=== PATIENT | male | born 1960 | race Caucasian/White ===

== ENCOUNTER 2017-02-04 07:53 | Outpatient (CLI) | payer MEDICARE ==
[~2017-02-04] VITALS: Ht 172.7 cm; Wt 122.7 kg
--- NOTE | ~2017-02-04 | HEMODYNAMI ---
PATIENT:FELIPE ADDISON MEDICAL RECORD: [id number] : 56 LOCATION:DSTIVEN ADMISSION DATE: 02/04/17 Generatedon:02/04/201711:00 Patient name: FELIPE ADDISON Patient #: [id number] SSN: : 1960 Date of study: 02/04/2017 Page: Of Hemodynamic Procedure Report Patient Data Patient Demographics Procedure consent was obtained First Name: FELIPE Gender: Male Last Name: CYN : 1960 [facility] Initial: PATRICK Age: 56 year(s) Patient #: [id number] Race: Unknown Additional ID: [id number] Contact details Address: [facility] [address] State: [place] City: [place] Zip code: [address] Past Medical History Allergies Allergen Reaction Date Comments Reported Other allergy 02/04/2017 Spiriva Admission Admission Data Admission Date: 02/04/2017 Admission Time: 7:53 Admit Source: Other Lab Results Lab Result Date: 02/04/2017 Lab Result Time: 8:20 Biochemistry Name Units Result Min Max BUN mg/dl 18 --(---*)-- 7 18 Creatinine mg/dl 1.1 --(--*-)-- 0.6 1.3 CBC Name Units Result Min Max Hematocrit % 42.9 --(*---)-- 42 54 Hemoglobin g/dl 13.6 --(*---)-- 13.5 17.5 Procedure Procedure Types Cath Procedure Diagnostic Procedure LHC LH w/Coronaries FFR/IVUS Intra-Coronary IVUS Initial PCI Procedure Coronary Stent Initial Miscellaneous Procedures Moderate Sedation up to 30 minutes Procedure Description Procedure Date Procedure Date: 02/04/2017 Procedure Start Time: 10:43 Procedure End Time: 10:59 Procedure Staff Name Function Augustine Murillo MD Performing Physician Santy Bagley RT Scrub Alex Nayak RN Nurse Yolis Ramires RT Monitor Savage Arreola RN Drivers License Examiner Procedure Data Cath Procedure Fluoroscopy Diagnostic fluoroscopy Total fluoroscopy Time: 4.3 time: 4.3 min min Diagnostic fluoroscopy Total fluoroscopy dose: dose: 1134 mGy 1134 mGy Contrast Material Contrast Material Type Amount (ml) Isovue 300 102 Entry Location Entry Primary Successful Side Size Upsize Upsize Entry Closure Rhodes ccessful Closure Location (Fr) 1 (Fr) 2 (Fr) Remarks Device Remarks Radial Right 6 Fr Mechanical artery Short Compression Estimated blood loss: 10 ml Diagnostic catheters Device Type Used For End Catheter Placement Merit 5Fr Ultimate 1 LV Angiography Catheter (NO COST SUPPLY) Merit 5Fr Ultimate 1 Left Coronary Catheter (NO COST SUPPLY) Angiography Merit 5Fr Ultimate 1 Right Coronary Catheter (NO COST SUPPLY) Angiography Procedure Complications No complications Procedure Medications Medication Administration Route Dosage Oxygen NC 2 l/min Lidocaine 2% added to field 20 Heparin Flush Bag added to field 2 bags (1000units/500ml NS) 0.9% NaCl I.V. 100 ml/hr Versed I.V. 2 mg Fentanyl I.V. 100 mcg Radial Cocktail added to field 1 syringe (Verapomil 2mg/Nitro 400mcg/Heparin 1500units) Versed I.V. 2 mg Fentanyl I.V. 100 mcg Versed I.V. 1 mg Fentanyl I.V. 50 mcg Heparin Bolus I.V. 5000 units Versed I.V. 1 mg Fentanyl I.V. 50 mcg Hemodynamics Rest Heart Rate: 73 (bpm) Snapshots Pre Cath Intra NCS Post Cath Vital Signs Time Heart Resp SPO2 etCO2 [id number] NIBP (mmHg) Rhythm Pain Sedation Rate (ipm) (%) (mmHg) (mmHg) Status Level (bpm) 10:25:53 79 11 96 0 0 162/84(121) NSR 0 (11) 10(A) , No pain 10:30:32 79 24 96 0 0 174/85(140) NSR 0 (11) 10(A) , No pain 10:35:14 80 24 96 0 0 175/90(138) NSR 0 (11) 10(A) , No pain 10:39:55 73 27 94 0 0 160/81(134) NSR 0 (11) 10(A) , No pain 10:44:33 74 14 94 0 0 156/78(124) NSR 0 (11) 10(A) , No pain 10:49:04 75 16 94 0 0 146/66(98) NSR 0 (11) 10(A) , No pain 10:53:38 77 17 97 0 0 143/71(115) NSR 0 (11) 10(A) , No pain 10:58:09 86 17 97 0 0 152/80(118) NSR 0 (11) 10(A) , No pain Medications Time Medication Route Dose Verified Delivered Reason Note s Effectiveness by by 10:28:31 Oxygen NC 2 l/min Augustine Buffie used for Chidi Nayak RN procedure 10:28:43 Lidocaine 2% added 20ml Augustine Augustine for local to vial Chidi Murillo MD anesthetic field 10:28:50 Heparin Flush added 2 bags Augustinemitzi Bradshaw used for Bag to Chidi Murillo MD procedure (1000units/500ml field NS) 10:29:03 0.9% NaCl I.V. 100 Augustine Buffie Per physician ml/hr Chidi Nayak RN 10:36:31 Versed I.V. 2 mg Augustine Buffie for sedation Chidi Nayak RN 10:36:40 Fentanyl I.V. 100 mcg Augustine Buffie for sedation Chidi Nayak RN 10:38:56 Radial Cocktail added 1 Augustinemitzi Mosleyie (Verapomil to syringe Chidi Nayak RN 2mg/Nitro field 400mcg/Heparin 1500units) 10:41:04 Versed I.V. 2 mg Augustine Buffie for sedation Chidi Nayak RN 10:41:08 Fentanyl I.V. 100 mcg Augustine Buffie for sedation Chidi Nayak RN 10:45:43 Versed I.V. 1 mg Augustine Buffie for sedation Chidi Nayak RN 10:45:47 Fentanyl I.V. 50 mcg Augustine Buffie for sedation Chidi Nayak RN 10:50:10 Heparin Bolus I.V. 5000 Augustine Buffie for veri fied units Chidi Nayak RN anticoagulation with dr murillo 10:53:26 Versed I.V. 1 mg Augustine Buffie for sedation Chidi Nayak RN 10:53:30 Fentanyl I.V. 50 mcg Augustine Buffie for sedation Chidi Nayak RN Procedure Log Time Note 9:49:20 Informed consent obtained and on chart 9:49:24 Admit Source: Other 9:49:57 Savage Arreola RN sent for patient. Start room use. 9:49:58 Time tracking: Regular hours 9:50:02 Plan of Care:Hemodynamics will remain stable., Cardiac rhythm will remain stable., Comfort level will be maintained., Respiratory function will remain adequate., Patient/ family verbilizes understanding of procedure., Procedure tolerated without complication., Recovers from procedure without complications.. 9:50:14 H&P Date Dictated: 01/19/2017 Within 30 days and on chart., H&P Addendum completed by physician on day of procedure. (MUST COMPLETE FOR ALL OUTPATIENTS). 9:51:51 Lab Result : BUN 18 mg/dl 9::51 Lab Result : Creatinine 1.1 mg/dl 9::51 Lab Result : Hematocrit 42.9 % 9::51 Lab Result : Hemoglobin 13.6 g/dl 10:18:53 Patient received from Pre/Post Procedure Room to CCL 1 Alert and oriented. Tansferred to table in Supine position. 10:18:55 Warm blankets applied, and dariela hugger turned on for patient comfort. 10:18:55 Correct patient and procedure confirmed by team. 10:18:56 ECG and BP/O2 sat monitors applied to patient. 10:19:03 Pre-procedure instructions explained to patient. 10:19:04 Pre-op teaching completed and patient verbalized understanding. 10:19:05 Family in waiting room. 10:19:07 Patient NPO since Midnight. 10:24:10 Vital chart was started 10:28:31 Oxygen 2 l/min NC was administered by Alex Nayak RN; used for procedure; 10:28:43 Lidocaine 2% 20ml vial added to field was administered by Augustine Murillo MD; for local anesthetic; 10:28:50 Heparin Flush Bag (1000units/500ml NS) 2 bags added to field was administered by Augustine Murillo MD; used for procedure; 10:29:03 0.9% NaCl 100 ml/hr I.V. was administered by Alex Nayak RN; Per physician; 10:29:40 Full Disclosure recording started 10:29:44 Rhythm: sinus rhythm 10:29:59 Patient allergic to Other allergySpiriva 10:30:01 Is the patient allergic to Iodine/contrast media? No. 10:30:05 Is patient on blood thinner?Yes 10:30:07 ACC The patient was administered the following blood thiners within the last 24 hours: ACCPlavix 10:30:09 Patient diabetic? Yes. 10:30:13 If diabetic: On Metformin? No 10:30:19 Previous problem with sedation/anesthesia? No ? 10:30:20 Snore? Yes 10:30:22 Sleep apnea? Yes 10:30:24 Deviated septum? No 10:30:25 Opens mouth fully? Yes 10:30:25 Sticks out tongue? Yes 10:30:28 Airway obstruction? Yes COPD 10:30:32 Dentures? No ? 10:30:37 Pre procedure: right dorsailis pedis pulse 2+ Normal; easily identifiable; not easily obliterated 10:30:39 Modified Jose Angel's test Ulnar < 7 seconds 10:30:41 Patient pain scale 0/10 ?. 10:30:45 IV patent on arrival in left hand with 0.9% NaCl at O. 10:30:48 Lab results completed and on chart. 10:30:52 Right Radial & Right Groin area was prepped with chlora-prep and draped in sterile fashion 10:30:52 Alarms reviewed by R. N. 10:30:53 Sharps counted by scrub and verified by R.N. 10:30:56 Use device set Radial Dx 10:30:57 Acist Syringe opened to sterile field. 10:30:58 Medline Cath Pack opened to sterile field. 10:30:58 Bag Decanter opened to sterile field. 10:30:59 Terumo 6Fr Slender Glidesheath opened to sterile field. 10:30:59 St Scout 260cm J .035 wire opened to sterile field. 10:30:59 Acist Hand Control opened to sterile field. 10:30:59 Acist Manifold opened to sterile field. 10:31:00 Tegaderm 4 x 4 opened to sterile field. 10:31:00 MBrace Wrist Support opened to sterile field. 10:36:15 Final Timeout: patient, procedure, and site verified with staff and physician. All members of the team are in agreement. 10:36:18 Right Radial site verified by team. 10:36:21 Physical assessment completed. ASA score P 2 - A patient with mild systemic disease as per Augustine Mruillo MD. 10:36:25 Sedation plan: IV Moderate Sedation Versed, Fentanyl 10:36:31 Versed 2 mg I.V. was administered by Alex Nayak RN; for sedation; 10:36:40 Fentanyl 100 mcg I.V. was administered by Alex Nayak RN; for sedation; 10:38:56 Radial Cocktail (Verapomil 2mg/Nitro 400mcg/Heparin 1500units) 1 syringe added to field was administered by Alex Nayak RN; ; 10:40:50 Zero performed for pressure channel P1 10:41:04 Versed 2 mg I.V. was administered by Alex Nayak RN; for sedation; 10:41:08 Fentanyl 100 mcg I.V. was administered by Alex Nayak RN; for sedation; 10:41:15 Baseline sample Acquired. 10:43:01 Procedure started. 10:43:06 Local anesthetic to right radial artery with Lidocaine 2% by Augustine Murillo MD.INITIAL ACCESS ONLY 10:43:42 A 6 Fr Short sheath was inserted into the Right Radial artery 10:44:44 A Q.ME 5Fr Ultimate 1 Catheter (NO COST SUPPLY) was advanced over the wire and used for LV Angiography. 10:45:43 Versed 1 mg I.V. was administered by Alex Nayak RN; for sedation; 10:45:46 LV gram done using MEJIA 10:45:47 Fentanyl 50 mcg I.V. was administered by Alex Nayak RN; for sedation; 10:45:49 EF : 55 % 10:45:53 Injector settings: Ml/sec: 5, Volume: 15, 10:46:07 A Q.ME 5Fr Ultimate 1 Catheter (NO COST SUPPLY) was advanced over the wire and used for Left Coronary Angiography. 10:47:13 Rajput Whisper J 300cm 0.014 guide wire opened to sterile field. 10:47:14 Q.ME BasixCompak Inflation Kit opened to sterile field. 10:48:43 A Q.ME 5Fr Ultimate 1 Catheter (NO COST SUPPLY) was advanced over the wire and used for Right Coronary Angiography. 10:49:11 Catheter removed. 10:49:20 ILink Globaltronic Launcher 6Fr AR 2.0 guide catheter opened to sterile field. 10:50:10 Heparin Bolus 5000 units I.V. was administered by Alex Nayak RN; for anticoagulation; verified with dr murillo 10:50:47 6 Fr AR 2.0 guide catheter was inserted over the wire 10:51:20 Whisper wire advanced. 10:51:51 IVUS catheter advanced over wire. 10:51:55 IVUS pass to RCA lesion performed. 10:52:53 IVUS catheter removed over wire. 10:53:26 Versed 1 mg I.V. was administered by Alex Nayak RN; for sedation; 10:53:30 Fentanyl 50 mcg I.V. was administered by Alex Nayak RN; for sedation; 10:54:20 Inflation Number: 1 A Hayden OTW 3.0 x 26 stent was prepped and advanced across the Dist RCA. The stent was deployed at 13 ANALIA for 0:08 (min:sec). 10:54:54 Stent catheter was removed intact over wire. 10:54:54 Wire removed. 10:54:55 Guide catheter removed. 10:55:04 Sheath removed intact; hemostasis achieved with Mechanical Compression to the Right Radial artery. 10:55:08 Procedure ended.(Physican Out) 10:56:04 Fluoroscopy time 04.30 minutes. 10:56:07 Fluoroscopy dose: 1134 mGy 10:56:07 Flurop Dose total: 1134 10:56:11 Contrast amount:Isovue 300 102ml. 10:56:12 Sharps counted by scrub and verified by R.N. 10:56:15 TR band inflated with 12cc of air. 10:56:20 Insertion/operative site no bleeding no hematoma. 10:56:27 Post right radial artery:stable, clean and dry 10:56:29 Post Procedure Pulses reassessed and unchanged 10:56:37 Post-procedure physical assessment completed. ASA score P 2 - A patient with mild systemic disease as per Augustine Murillo MD. 10:56:40 Post procedure rhythm: unchanged. 10:56:43 Estimated blood loss: 10 ml 10:56:44 Post procedure instruction explained to patient.Patient verbalizes understanding. 10:56:45 Patient needs reinforcement of post procedure teaching. 10:57:05 Procedure type changed to Cath procedure, Diagnostic procedure, LHC, LHC w/Coronaries, FFR/IVUS, Intra-Coronary IVUS Initial, PCI procedure, Coronary Stent Initial, Miscellaneous Procedures, Moderate Sedation up to 30 minutes 10:57:43 Procedure Complication : No complications 10:57:46 See physician's report for complete and final results. 10:58:25 [place] Eag[place]e IVUS Catheter opened to sterile field. 10:58:45 Terumo TR Band Large opened to sterile field. 10:59:06 Procedure and supply charges have been captured, reviewed, submitted and are correct. 10:59:14 Report given to Pre/Post Procedure Room. 10:59:18 Patient transfered to Pre/Post Procedure Room with Stretcher. 10:59:24 Procedure ended. 10:59:24 Full Disclosure recording stopped 10:59:59 End room use (Document Last) 11:00:01 Vital chart was stopped Intervention Summary Intervention Notes Time ActionType Lesion and Equipment Action# Pressure Duration Attributes Used 10:54:20 Place stent Dist RCA Hayden OTW 1 13 00:08 3.0 x 26 stent Device Usage Item Name Manufacture Quantity Catalog Hospital Part Current Minima l Lot# / Number Charge Number Stock Stock Serial# Code Acist Acist 1 60965 [id number] 474244 389335 20 Syringe Medical Systems Inc Medline Cardinal 1 [id number] 778311 46249 540273 5 Cath Pack Health Bag Microtek 1 2002S [id number] 56260 104281 5 DecAll Together Now Medical Inc. Terumo 6Fr Terumo 1 [id number] 695112 670351 065717 [address] St Scout 1 624506 500907 928507 023327 30 260cm J .035 wire Acist Hand Acist 1 24684 368844 740363 425602 5 Control Medical Systems Inc Acist Acist 1 86302 363156 758034 367060 5 Manifold Medical Systems Inc Tegaderm 4 3M 1 1626W 868253 850033 533228 5 x 4 MBrace Advanced 1 140-0250-00 397530 33577 473099 5 Wrist Vascular Support Dynamics Merit 5Fr Merit 1 [id number] 214038 012370 5 Ultimate 1 Medical Catheter (NO COST SUPPLY) Rajput Rajput 1 [id number] 137916 054257 041908 5 Whisper J Vascular 300cm 0.014 guide wire Merit Merit 1 [id number] 493574 160422 946358 15 BasixCompak Medical Inflation Kit Medtronic Medtronic 1 [id number] 107874 60317 215092 1 Launcher 6Fr AR 2.0 guide catheter [place] OTW Medtronic 1 [id number] 031332 0685790 908591 5 [id number] 3.0 x 26 stent [place] 1 [id number] 816352 066904 561564 8 [place] IVUS Catheter Terumo TR Terumo 1 [id number] 212621 407326 660752 40 Band Large Signature Audit [place] Time Signature Unsigned Intra-Procedure 02/04/2017 Yolis 11:00:13 AM Counts RT(R) Signatures Monitor : Yolis Signature : Counts RT Date : Time : [address] [address]
--- NOTE | ~2017-02-04 | OP ---
PATIENT NAME: FELIPE ADDISON MEDICAL RECORD: [id number] :56 LOCATION:D.CAT ADMISSION DATE: SURGEON: ROMY GONZALEZ MD DATE OF OPERATION: 02/04/2017 PROCEDURES: 1. PTCA stent RCA. 2. Intravascular ultrasound. 3. Left heart catheterization. 4. Selective coronary angiography. 5. Left ventriculogram. INDICATION: Unstable angina. PROCEDURE IN DETAIL: After informed consent was obtained and after detailed explanation of risks, benefits as well as alternative therapies, the patient elected to proceed with angiogram and angioplasty. The right radial area was prepped and draped in normal sterile fashion. The right radial artery was cannulated via modified Seldinger technique with placement of 6-[place] sheath. All catheters exchanged through this sheath. FINDINGS: The left ventriculogram was performed in standard 30-degree MEJIA view, reveals good cardiac wall motion throughout all segments. Overall ejection fraction estimated at 50%. SELECTIVE CORONARY ANGIOGRAPHY: 1. Left main has no significant angiographic disease. 2. Left anterior descending has a large diagonal branch that has a 90% stenosis. 3. The left circumflex has a first obtuse marginal has 80% and 90% stenosis. 4. Right coronary has a long area of 70% to 80% stenosis throughout the entire mid portion of the vessel. PTCA STENT OF THE RIGHT CORONARY: The stent used was a 3.0 x 26 mm Hayden. Result was 0% residual stenosis. OVERALL IMPRESSION: Successful percutaneous transluminal coronary angioplasty stent of the right coronary artery going from 80% initial stenosis to 0% residual. PLAN: PTCA stent of the LAD, diagonal and first obtuse marginal in the near future. TRANSINT:[id number] Voice Confirmation ID: [id number] DOCUMENT ID: [id number] ROMY GONZALEZ MD CC: [id number] DICTATION DATE: 02/04/17 1059 CONSTRUCTION EXECUTIVE: 02/04/17 1310 REG [facility] [address] [place] [address]
[~2017-02-04 07:53] MED LIST: ACETAMINOPHEN325 MG PO; ADVAIR 250/501 DISK INH; ATROVENT 0.03%30 ML NS; BAYER CHEWABLE81 MG PO; BYSTOLIC10 MG PO; BYSTOLIC20 MG PO; CALAN120 MG PO; CATAPRES0.2 MG PO; CLEOCIN HCL300 MG PO; DALIRESP500 MCG PO; FLUTICASONE PRO16 GM NASAL; GLUCOPHAGE1000 MG PO; GLUCOPHAGE500 MG PO; HUMALOG 30100 UNITS/ SC; HUMULIN R100 U/ML SC; IPRAT-ALBUT 0.5-3 ML UPD; JANUVIA100 MG PO; K-TAB10 MEQ PO; KLONOPIN1 MG PO; LANTUS INSULIN10 ML SC; LANTUS SOL100 UNIT/1 SQ; LASIX40 MG PO; LEVAQUIN500 MG PO; LEVAQUIN750 MG PO; MEDROL2 MG PO; MUCINEX DM ER1 EAC1 PO; NEXIUM40 MG PO; NICODERM C1 PATCH .1 TD; NORCO 7.5/325 T1 TA1 PO; NORVASC10 MG PO; PLAVIX75 MG PO; PRAVASTATIN SOD10 MG PO; PREDNISONE10 MG PO; PREDNISONE20 MG PO; SINGULAIR10 MG PO; SPIRIVA18 MCG INH
[2017-02-04] MEDS ORDERED: TRESIBA FL100 UNIT/1 SC (08:22)
[2017-02-04 08:30] VITALS: BP 169/73; Ht 172.7 cm; Wt 122.7 kg
[2017-02-04 08:53] LABS: BASOPHILS 0.2 % (0-2); EOSINOPHILS 3.8 % (0-7); HEMATOCRIT 42.9 % (42.0-54.0); HEMOGLOBIN 13.6 g/dL (13.5-17.5); IMMATURE GRANULOCYTES 0.1 % (0-5); LYMPHOCYTES 15.1 % (15-50); MCH 27.5 pg (26.0-34.0); MCHC 31.7 g/dL (31.0-37.0); MCV 86.7 fL (80.0-100.0); MEAN PLATELET VOLUME 11.2 fL (7.4-10.4); MONOCYTES 8.1 % (2-11); NEUTROPHILS 72.7 % (40-80); PLATELET COUNT 199 10x3/uL (130-400); RBC 4.95 10x6/uL (4.20-6.10); RDW 13.6 % (11.5-14.5); WBC 9.7 10x3/uL (4.8-10.8)
[2017-02-04 09:31] LABS: CALCIUM 9.2 mg/dL (8.5-10.1); CARBON DIOXIDE 29.7 mmol/L (21.0-32.0); CHLORIDE - SERUM 99 mmol/L (98-107); CKMB 1.5 U/L (0.0-3.6); CREATINE KINASE 107 UL (21-232); CREATININE - SERUM 1.1 mg/dL (0.6-1.3); POTASSIUM - SERUM 4.4 mmol/L (3.5-5.1); SODIUM 136 mmol/L (136-145); UREA NITROGEN 18 mg/dL (7-18); eGFR NON AFRICAN AMERICAN 73 mL/min (90-120)
[2017-02-04 09:38] LABS: CALC OSMOLALITY 290 mosm/kg (275-300); GLUCOSE 413 mg/dL (74-106); TROPONIN-I < 0.017 ng/mL (0.000-0.060)
[2017-02-04] MEDS ORDERED: BAYER CHEWABLE81 MG PO (11:19)
--- NOTE | 2017-02-04 11:26 | NUR ---
VSS WITH CHEST PAIN DENIED. TR BAND R/WRIST CDI NO BLEEDING NO HEMATOMA NOTED. INSTRUCTED PATIENT TO KEEP RUE STRAIGHT NO BENDING OR FLEXING OF WRIST
--- NOTE | 2017-02-04 11:52 | NUR ---
VSS WITH CHEST PAIN DENIED. PATIENT ALERT AND ORIENTED SITTING UP ON BEDSIDE WITH TR BAND TO R/WRIST. ENCOURAGED PATIENT TO KEEP RUE STILL WITH NO BENDING OR FLEXING. ANXIOUS AND MOVING ALOT ALL OVER BED
--- NOTE | 2017-02-04 12:00 | NUR ---
DR GONZALEZ AT BEDSIDE TALKING TO PATIENT AND . CHEST PAIN IS DENIED
--- NOTE | 2017-02-04 12:19 | NUR ---
NO CHANGE IN ASSESSMENT TR BAND REMAINS CDI NO BLEEDING NO HEMATOMA NOTED. VSS
--- NOTE | 2017-02-04 12:55 | NUR ---
TR BAND REMAINS TO R/WRIST CDI NO BLEEDING NO HEMATOMA NOTED. CHEST PAIN IS DENIED WITH VSS
--- NOTE | 2017-02-04 13:45 | NUR ---
RESTING QUIETLY WITH VSS NO DISTRESS NOTED. TR BAND REMAINS TO R/WRIST CDI NO BLEEDING NO HEMATOMA NOTED
--- NOTE | 2017-02-04 14:00 | NUR ---
1400 2 CC AIR REMOVED FROM TR BAND WITH NO BLEEDING NO HEMATOMA NOTED 1415 2 CC AIR REMOVED FROM TR BAND WITH NO BLEEDING NO HEMATOMA NOTED
--- NOTE | 2017-02-04 14:28 | NUR ---
PIV REMOVED WITH DRESSING APPLIED. 2 CC AIR REMOVED FROM TR BAND WITH NO BLEEDING NO HEMATOMA NOTED. PATIENT UP TO GET DRESSED FOR DISCHARGE WITH CHEST PAIN DENIED
--- NOTE | 2017-02-04 14:51 | NUR ---
TR BAND REMOVED WITH DRESSING APPLIED. NO BLEEDING NO HEMATOMA NOTED. VERBAL AND WRITTEN DISCHARGE GONE OVER WITH PATIENT AND BOTH VERBALIZED UNDERSTANDING. CHEST PAIN IS DENIED TRANSPORTED TO PARKING VIA FOR TO DRIVE HOME. NO C/O
== END 2017-02-04 14:53 ==
LOC: D.CATH 07:53
PROVIDERS: Internal Medicine Interventional Cardiology
DX: I25.110 Atherosclerotic heart disease of native coronary artery with unstable angina pectoris (principal)
CPT/HCPCS: 93458; 92978; C9600

== ENCOUNTER 2017-02-09 07:55 | Outpatient (CLI) | payer MEDICARE ==
[~2017-02-09] VITALS: Ht 172.7 cm; Wt 122.7 kg
--- NOTE | ~2017-02-09 | HEMODYNAMI ---
PATIENT:FELIPE ADDISON MEDICAL RECORD: [id number] : 56 LOCATION:DSTIVEN ADMISSION DATE: 02/09/17 Generatedon:02/09/201710:47 Patient name: FELIPE ADDISON Patient #: [id number] SSN: : 1960 Date of study: 02/09/2017 Page: Of Hemodynamic Procedure Report Patient Data Patient Demographics Procedure consent was obtained First Name: FELIPE Gender: Male Last Name: CYN : 1960 [facility] Initial: PATRICK Age: 56 year(s) Patient #: [id number] Race: Unknown Additional ID: [id number] Contact details Address: [facility] State: [place] City: [place] Zip code: [address] Past Medical History Allergies Allergen Reaction Date Comments Reported Other allergy 02/04/2017 Spiriva Other allergy 02/09/2017 tiotropium Admission Admission Data Admission Date: 02/09/2017 Admission Time: 7:55 Lab Results Lab Result Date: 02/04/2017 Lab Result Time: 8:20 Biochemistry Name Units Result Min Max BUN mg/dl 18 --(---*)-- 7 18 Creatinine mg/dl 1.1 --(--*-)-- 0.6 1.3 CBC Name Units Result Min Max Hematocrit % 42.9 --(*---)-- 42 54 Hemoglobin g/dl 13.6 --(*---)-- 13.5 17.5 Procedure Procedure Types Cath Procedure PCI Procedure Coronary Stent Initial Miscellaneous Procedures Moderate Sedation up to 15 minutes Procedure Description Procedure Date Procedure Date: 02/09/2017 Procedure Start Time: 10:37 Procedure End Time: 10:45 Procedure Staff Name Function Augustine Murillo MD Performing Physician Adam Gallegos RT Scrub Ivon Carrera RN Nurse Maddy Nguyen RT Monitor Procedure Data Cath Procedure Fluoroscopy Diagnostic fluoroscopy Total fluoroscopy Time: 1.2 time: 1.2 min min Diagnostic fluoroscopy Total fluoroscopy dose: 200 dose: 200 mGy mGy Contrast Material Contrast Material Type Amount (ml) Isovue 300 34 Entry Location Entry Primary Successful Side Size Upsize Upsize Entry Closure Rhodes ccessful Closure Location (Fr) 1 (Fr) 2 (Fr) Remarks Device Remarks Radial Right 6 Fr Mechanical TR band artery Short Compression Estimated blood loss: 10 ml Procedure Complications No complications Procedure Medications Medication Administration Route Dosage Oxygen NC 2 l/min Heparin Flush Bag added to field 2 bags (1000units/500ml NS) Lidocaine 2% added to field 20 Radial Cocktail added to field 1 syringe (Verapomil 2mg/Nitro 400mcg/Heparin 1500units) Versed I.V. 1 mg Fentanyl I.V. 50 mcg Versed I.V. 1 mg Fentanyl I.V. 50 mcg Versed I.V. 1 mg Fentanyl I.V. 50 mcg Versed I.V. 1 mg Fentanyl I.V. 50 mcg Versed I.V. 1 mg Fentanyl I.V. 50 mcg Fentanyl I.V. 50 mcg Versed I.V. 1 mg Heparin Bolus I.V. 4000 units Versed I.V. 1 mg Hemodynamics Rest HGB: 13.6 (g/dl) Heart Rate: 65 (bpm) Snapshots Pre Cath Intra NCS Post Cath Vital Signs Time Heart Resp SPO2 NIBP (mmHg) Rhythm Pain Sedation Rate (ipm) (%) Status Level (bpm) 9:45:04 63 17 96 157/77(123) NSR 0 (11) 10(A) , No pain 9:49:39 62 23 96 152/75(126) NSR 0 (11) 10(A) , No pain 9:54:07 63 15 98 158/81(120) NSR 0 (11) 10(A) , No pain 9:58:37 60 20 98 159/81(136) NSR 0 (11) 10(A) , No pain 10:03:06 64 16 98 172/87(139) NSR 0 (11) 10(A) , No pain 10:07:38 60 16 95 157/73(132) NSR 0 (11) 10(A) , No pain 10:12:01 62 16 96 139/73(116) NSR 0 (11) 10(A) , No pain 10:16:27 58 16 96 149/69(128) NSR 0 (11) 10(A) , No pain 10:20:49 58 16 94 142/74(119) NSR 0 (11) 10(A) , No pain 10:25:13 59 15 95 141/67(113) NSR 0 (11) 10(A) , No pain 10:29:39 58 17 97 138/62(103) NSR 0 (11) 10(A) , No pain 10:34:02 60 19 97 134/70(112) NSR 0 (11) 9(A) , No pain 10:38:24 60 16 97 131/72(112) NSR 0 (11) 9(A) , No pain 10:42:38 63 16 95 119/61(79) NSR 0 (11) 9(A) , No pain 10:45:46 62 14 96 127/63(100) NSR 0 (11) 10(A) , No pain Medications Time Medication Route Dose Verified Delivered Reason Note s Effectiveness by by 9:43:47 Oxygen NC 2 l/min Augustine Ivon Per physician Chidi Carrera RN 9:43:54 Heparin Flush added 2 bags Augustine Augustine used for Bag to Chidi Murillo MD procedure (1000units/500ml field NS) 9:44:01 Lidocaine 2% added 20ml Augustine Augustine used for to vial Chidi Murillo MD procedure field 9:44:07 Radial Cocktail added 1 Augustine Augustine used for (Verapomil to syringe Chidi Murillo MD procedure 2mg/Nitro field 400mcg/Heparin 1500units) 10:20:03 Versed I.V. 1 mg Augustine Ivon for sedation Chidi Carrera RN 10:20:07 Fentanyl I.V. 50 mcg Augustine Ivon for sedation Chidi Carrera RN 10:22:00 Versed I.V. 1 mg Augustine Ivon for sedation Chidi Carrera RN 10:22:08 Fentanyl I.V. 50 mcg Augustine Ivon for sedation Chidi Crarera RN 10:24:03 Versed I.V. 1 mg Augustine Ivon for sedation Chidi Carrera RN 10:24:08 Fentanyl I.V. 50 mcg Augustine Ivon for sedation Chidi Carrera RN 10:26:00 Versed I.V. 1 mg Augustine Ivon for sedation Chidi Carrera RN 10:26:06 Fentanyl I.V. 50 mcg Augustine Ivon for sedation Chidi Carrera RN 10:28:00 Fentanyl I.V. 50 mcg Augustine Ivon for sedation Chidi Carrera RN 10:28:06 Versed I.V. 1 mg Augustine Ivon for sedation Chidi Carrera RN 10:30:00 Versed I.V. 1 mg Augustine Ivon for sedation Chidi Carrera RN 10:30:07 Fentanyl I.V. 50 mcg Augustine Ivon for sedation Chidi Carrera RN 10:32:19 Versed I.V. 1 mg Augustine Ivon for sedation Chidi Carrera RN 10:38:53 Heparin Bolus I.V. 4000 Augustine Ivon for dose units Chidi Carrera RN anticoagulation verified with dr murillo Procedure Log Time Note 9:31:35 Diagnostic Cath status Elective 9:31:40 Adam LUDWIG(R) sent for patient. Start room use. 9:31:41 Time tracking: Regular hours 9:31:46 Plan of Care:Hemodynamics will remain stable., Cardiac rhythm will remain stable., Comfort level will be maintained., Respiratory function will remain adequate., Patient/ family verbilizes understanding of procedure., Procedure tolerated without complication., Recovers from procedure without complications.. 9:35:37 Patient received from Pre/Post Procedure Room to CCL 2 Alert and oriented. Tansferred to table in Supine position. 9:35:45 Warm blankets applied, and dariela hugger turned on for patient comfort. 9:35:46 Correct patient and procedure confirmed by team. 9:35:49 Signed procedure consent form obtained from patient. 9:35:57 H&P Date Dictated: 02/09/2017 Within 30 days and on chart., H&P Addendum completed by physician on day of procedure. (MUST COMPLETE FOR ALL OUTPATIENTS). 9:36:26 Pre-procedure instructions explained to patient. 9:36:28 Family in waiting room. 9:36:31 Patient NPO since Midnight. 9:36:56 Patient allergic to Other allergytiotropium 9:37:13 Is patient on blood thinner?Yes 9:37:17 ACC The patient was administered the following blood thiners within the last 24 hours: ACCPlavix 9:38:52 Patient diabetic? Yes. 9:38:59 If diabetic: On Metformin? Yes 9:39:03 If on Metformin: Last Dose? 02/04/2017 9:39:09 Snore? Yes 9:39:12 Sleep apnea? No 9:39:19 Airway obstruction? No COPD 9:39:54 IV patent on arrival in left hand with 0.9% NaCl at O. 9:40:19 Lab results completed and on chart. 9:40:23 Right Radial & Right Groin area was prepped with chlora-prep and draped in sterile fashion 9:40:24 Alarms reviewed by R. N. 9:40:25 Sharps counted by scrub and verified by R.N. 9:40:33 Physician paged 9:43:39 Vital chart was started 9:43:47 Oxygen 2 l/min NC was administered by Ivon Carrera RN; Per physician; 9:43:54 Heparin Flush Bag (1000units/500ml NS) 2 bags added to field was administered by Augustine Murillo MD; used for procedure; 9:44:01 Lidocaine 2% 20ml vial added to field was administered by Augustine Murillo MD; used for procedure; 9:44:07 Radial Cocktail (Verapomil 2mg/Nitro 400mcg/Heparin 1500units) 1 syringe added to field was administered by Augustine Murillo MD; used for procedure; 10:03:14 Baseline sample Acquired. 10:03:18 Full Disclosure recording started 10:03:21 ECG and BP/O2 sat monitors applied to patient. 10:12:05 Zero performed for pressure channel P1 10:13:24 Use device set Radial PCI 10:13:26 Acist Syringe opened to sterile field. 10:13:26 Acist Hand Control opened to sterile field. 10:13:26 Bag Decanter opened to sterile field. 10:13:27 Medline Cath Pack opened to sterile field. 10:13:28 Merit BasixCompak Inflation Kit opened to sterile field. 10:13:29 Terumo 6Fr Slender Glidesheath opened to sterile field. 10:13:29 Acist Manifold opened to sterile field. 10:13:30 Tegaderm 4 x 4 opened to sterile field. 10:13:32 MBrace Wrist Support opened to sterile field. 10:13:33 St Scout 260cm J .035 wire opened to sterile field. 10::29 Physician arrived 10:: --------ALL STOP TIME OUT------ 10::31 Final Timeout: patient, procedure, and site verified with staff and physician. All members of the team are in agreement. 10::34 Right Radial & Right Groin site verified by team. 10::37 Physical assessment completed. ASA score P 2 - A patient with mild systemic disease as per Augustine Murillo MD. 10::41 Sedation plan: IV Moderate Sedation Versed, Fentanyl 10:20:03 Versed 1 mg I.V. was administered by Ivon Carrera RN; for sedation; 10:20:07 Fentanyl 50 mcg I.V. was administered by Ivon Carrera RN; for sedation; 10:22:00 Versed 1 mg I.V. was administered by Ivon Carrera RN; for sedation; 10:22:08 Fentanyl 50 mcg I.V. was administered by Ivon Carrera RN; for sedation; 10:24:03 Versed 1 mg I.V. was administered by Ivon Carrera RN; for sedation; 10:24:08 Fentanyl 50 mcg I.V. was administered by Ivon Carrera RN; for sedation; 10:26:00 Versed 1 mg I.V. was administered by Ivon Carrera RN; for sedation; 10:26:06 Fentanyl 50 mcg I.V. was administered by Ivon Carrera RN; for sedation; 10:28:00 Fentanyl 50 mcg I.V. was administered by Ivon Carrera RN; for sedation; 10:28:06 Versed 1 mg I.V. was administered by Ivon Carrera RN; for sedation; 10:30:00 Versed 1 mg I.V. was administered by Ivon Carrera RN; for sedation; 10:30:07 Fentanyl 50 mcg I.V. was administered by Ivon Carrera RN; for sedation; 10:32:19 Versed 1 mg I.V. was administered by Ivon Carrera RN; for sedation; 10:37:37 Procedure started. 10:37:54 Local anesthetic to right radial artery with Lidocaine 2% by Augustine Murillo MD.INITIAL ACCESS ONLY 10:38:03 A 6 Fr Short sheath was inserted into the Right Radial artery 10:38:53 Heparin Bolus 4000 units I.V. was administered by Ivon Carrera RN; for anticoagulation; dose verified with dr murillo 10:39:05 6 Fr XBLAD 3.5 guide catheter was inserted over the wire 10:39:20 Wire advanced across lesion. 10:40:56 Cordis 6FR XBLAD 3.5 guide catheter opened to sterile field. 10:41:47 Inflation Number: 1 A Hayden OTW 2.25 x 15 stent was prepped and advanced across the 1st Diag. The stent was deployed at 13 ANALIA for 0:10 (min:sec). 10:42:12 Stent catheter was removed intact over wire. 10:42:13 Wire removed. 10:42:14 Guide catheter removed. 10:42:37 Sheath removed intact; hemostasis achieved with Mechanical Compression to the Right Radial artery. 10:43:07 Terumo TR Band Standard opened to sterile field. 10:43:09 Procedure ended.(Physican Out) 10:43:20 Fluoroscopy time 01.20 minutes. 10:43:27 Flurop Dose total: 200 10:43:27 Fluoroscopy dose: 200 mGy 10:43:31 Contrast amount:Isovue 300 34ml. 10:43:35 Sharps counted by scrub and verified by R.N. 10:43:42 TR band inflated with 10cc of air. 10:43:46 Insertion/operative site no bleeding no hematoma. 10:43:57 Post-procedure physical assessment completed. ASA score P 3 - A patient with severe systemic disease as per Augustine Murillo MD. 10:44:02 Post procedure rhythm: unchanged. 10:44:05 Estimated blood loss: 10 ml 10:44:07 Post procedure instruction explained to patient.Patient verbalizes understanding. 10:44:24 Procedure type changed to Cath procedure, PCI procedure, Coronary Stent Initial, Miscellaneous Procedures, Moderate Sedation up to 15 minutes 10:44:26 Procedure and supply charges have been captured, reviewed, submitted and are correct. 10:44:54 Procedure Complication : No complications 10:44:56 Vital chart was stopped 10:45:00 See physician's report for complete and final results. 10:45:08 Patient transfered to Pre/Post Procedure Room with Stretcher. 10:45:11 Procedure ended. 10:45:11 Full Disclosure recording stopped 10:45:13 End room use (Document Last) Intervention Summary Intervention Notes Time ActionType Lesion and Equipment Action# Pressure Duration Attributes Used 10:41:47 Place stent 1st Diag Longbranch OTW 1 13 00:10 2.25 x 15 stent Device Usage Item Name Manufacture Quantity Catalog Hospital Part Current Minimal Lot# / Number Charge Number Stock Stock Serial# Code Acist Acist 1 19528 166538 593263 848684 20 Syringe Medical Systems Inc Acist Hand Acist 1 54859 766622 845832 732456 5 Control Medical Systems Inc Bag Microtek 1 2002S 146387 34885 368187 5 Decanter Medical Inc. Medline Cardinal 1 [id number] 724694 42791 884374 5 Cath Playground Sessions [facility] Merit 1 [id number] 082050 427669 169089 15 Data Stream CBOT Medical Inflation Kit Terumo 6Fr Terumo 1 [id number] 367094 942112 688567 40 Slender Glidesheath Acist Acist 1 91454 705868 271543 985140 5 Manifold Medical Systems Inc Tegaderm 4 3M 1 1626W 653896 576330 833487 5 x 4 MBrace Advanced 1 140-0250-00 763765 84750 413283 5 Wrist Vascular Support Dynamics St Scout St Scout 1 931327 257275 767620 622427 30 260cm J .035 wire Cordis 6FR Cardinal 1 [id number] 991171 758073 414451 10 XBLAD 3.5 Health guide catheter Longbranch OTW Medtronic 1 [id number] 063124 42040 713461 5 [id number] 2.25 x 15 stent Terumo TR Terumo 1 [id number] 085314 092037 222329 40 Band Standard Signature Audit [place]wald Stage Time Signature Unsigned Intra-Procedure 02/09/2017 Maddy Nguyen 10:47:29 AM RT(R) Signatures Monitor : Maddy Nguyen Signature : RT Date : Time : [place] [address] [place] [address]
--- NOTE | ~2017-02-09 | HP ---
PATIENT: FELIPE NO MEDICAL RECORD: [id number] ACCOUNT: [id number] LOCATION:FILOMENA : 56 ADMISSION DATE: 02/09/17 HISTORY AND PHYSICAL EXAMINATION DATE OF SERVICE: 02/09/2017 ADMITTING DIAGNOSES: 1. Angina. 2. Coronary artery disease. 3. Recent percutaneous transluminal coronary angioplasty stent of the right coronary artery with concomitant disease of the left anterior descending. 4. Hypertension. 5. Hyperlipidemia. HISTORY OF PRESENT ILLNESS: Mr. No presents with anginal symptomatology, found to have 2-vessel coronary artery disease of the RCA and LAD, underwent successful PTCA stent of the RCA. He is now brought back for PTCA stent of the LAD. PHYSICAL EXAMINATION: GENERAL APPEARANCE: Well-nourished, well-developed, appears stated age. Level of distress, comfortable. PSYCHIATRIC: Mental status, alert, normal affect. Orientation, oriented to time, place and person. EYES: Lids and conjunctiva, noninjected. No discharge, no pallor. ENT: Lips, teeth, gums, normal dentition. Oropharynx, no cyanosis, no pallor. NECK: Carotid arteries, bilateral normal upstroke, no bruits, no thrills. JUGULAR VEINS: No jugular venous pressure or distention. CERVICAL LYMPH NODES: Nontender, nonenlarged. THYROID: Not enlarged. Nontender. No nodules. LUNGS: Respiratory effort, unlabored. CHEST: Normal curvature. No thoracic deformity. No chest wall tenderness. Percussion, resonant. Auscultation, clear. No wheezes, no rales, no rhonchi. CARDIOVASCULAR: Precordial exam, nondisplaced. No heaves or pericardial thrills. Rate and rhythm, regular. Heart sounds, normal S1, normal S2. No S3, no gallop, no rub. Systolic murmur, not heard. Diastolic murmur, not heard. EXTREMITIES: No cyanosis, no edema. Peripheral pulses, full and equal in all extremities, except as noted. No bruits appreciated. ABDOMEN: Soft, nondistended. Normal aorta. No bruit. Nontender. No masses. Liver, nontender, no hepatomegaly. Spleen, nontender, no splenomegaly. MUSCULOSKELETAL: No joint tenderness. No joint swelling. No erythema. NEUROLOGICAL: Normal gait, normal strength, normal tone. SKIN: Warm and dry. REVIEW OF SYSTEMS: The patient reports easy bruising but reports no swollen glands. The patient reports no fever, no night sweats, no significant weight gain, no significant weight loss. No significant exercise tolerance. The patient reports no dry eyes, no irritation, no vision change. Patient reports no difficulty hearing and no ear pain. Patient reports no frequent nose bleeds or nose and sinus problems. Patient reports on arm pain on exertion. No shortness of breath while lying down. No history of heart murmur. Patient reports no cough, no wheezing or coughing up blood. Patient reports no abdominal pain, no vomiting. Normal appetite. No diarrhea and not vomiting blood. No nausea and no constipation. Patient reports no incontinence. No HISTORY AND PHYSICAL [id number] FELIPE NO difficulty urinating. No hematuria. No increased frequency. Patient reports no muscle aches. No weakness, no arthralgias, no back pain. No swelling of the extremities. Patient reports no abnormal mole, no jaundice, no rashes. Reports no loss of consciousness. No weakness and no numbness. No seizures, dizziness, or headaches. The patient reports no depression, no sleep disturbance, feeling safe in a relationship and no alcohol abuse. Patient reports on fatigue. Reports no runny nose or sinus pressure. No itching, no hives, and no frequent sneezing. OVERALL IMPRESSION: Anginal symptomatology with significant disease of the left anterior descending. We will proceed with percutaneous transluminal coronary angioplasty stent of the LAD. TRANSINT:[id number] Voice Confirmation ID: [id number] DOCUMENT ID: [id number] ROMY GONZALEZ MD CC: [id number] DICTATION DATE: 02/09/17908 BUSINESS MANAGEMENT INTERN: 02/09/17 1010 [facility] [address] [id number]
--- NOTE | ~2017-02-09 | OP ---
PATIENT NAME: FELIPE ADDISON MEDICAL RECORD: [id number] :56 LOCATION:D.CAT ADMISSION DATE: SURGEON: ROMY GONZALEZ MD DATE OF OPERATION: 02/09/2017 PROCEDURES: 1. PTCA stent LAD diagonal. 2. Selective coronary angiography. INDICATION: Angina and coronary artery disease. PROCEDURE IN DETAIL: After informed consent was obtained and after detailed explanation of risks, benefits as well as alternative therapies, the patient elected to proceed with angiogram and angioplasty. The right radial area was prepped and draped in normal sterile fashion. The right radial artery was cannulated via modified Seldinger technique with placement of 6-Slovenian sheath. All catheters exchanged through this sheath. FINDINGS: The left anterior descending diagonal was 90% stenosis addressed with a 2.25 x 15-mm Hayden stent. Result was 0% residual stenosis. OVERALL IMPRESSION: Successful percutaneous transluminal coronary angioplasty stent of the left anterior descending diagonal going from 90% initial stenosis to 0% residual stenosis. TRANSINT:[id number] Voice Confirmation ID: [id number] DOCUMENT ID: [id number] ROMY GONZALEZ MD CC: [id number] DICTATION DATE: 02/09/17 1046 GASTROINTESTINAL TECHNICIAN: 02/09/17 1857 DEP CLI 02/09/17 [address] [place] [address]
[~2017-02-09 07:55] MED LIST changes: +TRESIBA FL100 UNIT/1 SC
[2017-02-09 08:23] VITALS: BP 175/78; Ht 172.7 cm; Wt 122.7 kg
[2017-02-09 08:40] LABS: BASOPHILS 0.4 % (0-2); EOSINOPHILS 3.5 % (0-7); HEMATOCRIT 41.6 % (42.0-54.0); HEMOGLOBIN 13.5 g/dL (13.5-17.5); IMMATURE GRANULOCYTES 0.2 % (0-5); MCH 27.9 pg (26.0-34.0); MCHC 32.5 g/dL (31.0-37.0); MEAN PLATELET VOLUME 11.4 fL (7.4-10.4); MONOCYTES 8.1 % (2-11); NEUTROPHILS 69.8 % (40-80); PLATELET COUNT 202 10x3/uL (130-400); RBC 4.84 10x6/uL (4.20-6.10); RDW 13.5 % (11.5-14.5); WBC 10.9 10x3/uL (4.8-10.8)
[2017-02-09 08:52] LABS: CALCIUM 9.3 mg/dL (8.5-10.1); CARBON DIOXIDE 31.2 mmol/L (21.0-32.0); CREATININE - SERUM 1.2 mg/dL (0.6-1.3); POTASSIUM - SERUM 4.2 mmol/L (3.5-5.1)
== END 2017-02-09 14:45 | disposition home or self-care (01) ==
LOC: D.CATH 07:55
PROVIDERS: Internal Medicine Interventional Cardiology
DX: I25.119 Atherosclerotic heart disease of native coronary artery with unspecified angina pectoris (principal); Z95.5 Presence of coronary angioplasty implant and graft; I10 Essential (primary) hypertension; E78.5 Hyperlipidemia, unspecified; Z01.812 Encounter for preprocedural laboratory examination

== ENCOUNTER 2018-07-11 01:26 | Inpatient (IN) | payer MEDICARE ==
[~2018-07-11] VITALS: Ht 172.7 cm; Wt 125.9 kg
[2018-07-11] VITALS (12 sets, daily range): BP systolic 158–197; BP diastolic 64–78; BMI 40.0
[2018-07-11] MEDS ORDERED: TRESIBA FL100 UNIT/1 SC (01:41)
[2018-07-11] MEDS ORDERED: GABAPENTIN100 MG PO (01:42)
[2018-07-11] MEDS ORDERED: TRULICITY1.5 MG/0.5 (01:42)
[2018-07-11 01:57] LABS: BASOPHILS 0.3 % (0-2); EOSINOPHILS 3.3 % (0-7); HEMATOCRIT 25.6 % (42.0-54.0); HEMOGLOBIN 7.9 g/dL (13.5-17.5); IMMATURE GRANULOCYTES 0.2 % (0-5); LYMPHOCYTES 15.6 % (15-50); MCH 27.2 pg (26.0-34.0); MCHC 30.9 g/dL (31.0-37.0); MCV 88.3 fL (80.0-100.0); MEAN PLATELET VOLUME 10.3 fL (7.4-10.4); MONOCYTES 5.9 % (2-11); NEUTROPHILS 74.7 % (40-80); PLATELET COUNT 256 10x3/uL (130-400); RDW 13.5 % (11.5-14.5); WBC 10.5 10x3/uL (4.8-10.8)
[2018-07-11 02:06] LABS: INR 0.95 (0.85-1.17); PROTIME 12.2 SECONDS (11.6-15.0)
[2018-07-11 02:10] LABS: ALBUMIN 2.6 g/dL (3.4-5.0); ALKALINE PHOSPHATASE 132 U/L (46-116); ALT (SGPT) 21 U/L (10-68); CALC OSMOLALITY 291 mosm/kg (275-300); CALCIUM 8.8 mg/dL (8.5-10.1); CARBON DIOXIDE 29.7 mmol/L (21.0-32.0); CHLORIDE - SERUM 102 mmol/L (98-107); CREATININE - SERUM 1.2 mg/dL (0.6-1.3); POTASSIUM - SERUM 4.5 mmol/L (3.5-5.1); PROTEIN - SERUM 7.1 g/dL (6.4-8.2); SODIUM 141 mmol/L (136-145); UREA NITROGEN 20 mg/dL (7-18); eGFR NON AFRICAN AMERICAN 66 mL/min (90-120)
[2018-07-11 02:20] LABS: GLUCOSE 245 mg/dL (74-106)
[2018-07-11 02:21] LABS: CKMB 1.2 U/L (0.0-3.6); CREATINE KINASE 65 UL (21-232); MAGNESIUM - SERUM 1.5 mg/dL (1.8-2.4); TROPONIN-I 0.022 ng/mL (0.000-0.060)
--- NOTE | 2018-07-11 02:30 | NUR ---
PATIENT AWAKE AND ALERT, LYING ON HIS L SIDE WATCHING TV. RESPIRATIONS EVEN AND UNLABORED. NO NEEDS NOTED. UPDATED ON PLAN OF CARE AND DELAYS IN CARE. WILL CONTINUE TO MONITOR.
--- NOTE | 2018-07-11 03:30 | NUR ---
PATIENT LYING SUPINE. RESPIRATIONS EVEN AND UNLABORED. NO NEEDS NOTED. UPDATED ON PLAN OF CARE AND DELAYS IN CARE. WILL CONTINUE TO MONITOR.
[2018-07-11 03:55] LABS: % SATURATION 5 % (15-55); IRON 19 ug/dl (35-150); TOTAL IRON BIND CAPACITY 334 ug/dl (260-445); UNSAT IRON BIND CAPACITY 315 ug/dl (150-375)
[2018-07-11 04:18] LABS: FERRITIN 21 ng/mL (3-244); LDH 199 U/L (85-227)
--- NOTE | 2018-07-11 04:30 | NUR ---
PATIENT LYING ON HIS L SIDE, AWAKE AND ALERT, COLOR WNL FOR RACE. RESPIRATIONS EVEN AND UNLABORED. NO NEEDS NOTED. UPDATED ON PLAN OF CARE AND DELAYS IN CARE. WILL CONTINUE TO MONITOR.
--- NOTE | 2018-07-11 07:00 | NUR ---
ANDERSON VILCHIS RN REPORTED OFF TO ME ON THIS PATIENT. HE ADVISED PT NEEDED HIS IRON INFUSION STARTED WELL HIS PROTONIX GIVEN AND HIS MORNING BLOOD PRESSURE MEDICATIONS. ALSO STATED THAT THEY HAD ATTEMPTED TO CALL REPORT ON THIS PATIENT TO THE FLOOR NURSING STAFF BUT SINCE THERE WASN'T A BED IN THE RECEIVING ROOM, THEY WOULDN'T ACCEPT REPORT.
--- NOTE | 2018-07-11 07:07 | NUR ---
REPORT TO SAMMY NGUYEN RN.
--- NOTE | 2018-07-11 07:30 | NUR ---
PATIENT ASKING FOR HIS PAIN MEDICATIONS. I ADVISED HIM THAT HE HAS MORPHINE 4MG ORDERED 4HRS PRN. HE STATED THAT HE WANTED IT TO BE GIVEN.
--- NOTE | 2018-07-11 07:40 | NUR ---
REPORT CALLED TO DYLON HOLLOWAY. SHE STATED THAT THE ROOM WAS READY FOR HIM.
--- NOTE | 2018-07-11 07:43 | NUR ---
GLUCOSE CHECK = 141MG/DL
--- NOTE | 2018-07-11 07:50 | NUR ---
PATIENT TRANSPORTED TO THE FLOOR W/ IV INFUSION.
[2018-07-11] MEDS ORDERED: CELEBREX50 MG PO (08:23)
[2018-07-11] MEDS ORDERED: TRESIBA FL100 UNIT/1 SQ ×2 (08:24→08:25)
[2018-07-11] MEDS ORDERED: ANORO ELLIPTA1 EACH INH (08:27)
--- NOTE | 2018-07-11 08:30 | NUR ---
THE PATIENT REFUSES TO WEAR THE SCD'S, HE AMBULATES OFTEN.
--- NOTE | 2018-07-11 08:59 | NUR ---
WARNER CHRISTIE CONCHE OPERATOR AT THIS TIME IN INQUIRE ABOUT ORDERED ASA TO BE GIVEN AT THIS TIME, PATIENT POSITIVE FOR BLOOD IN STOOL WELL HAS LOW H/H. AWAITING A RETURN CALL
[2018-07-11 11:18] LABS: BASOPHILS 0.3 % (0-2); HEMATOCRIT 24.6 % (42.0-54.0); HEMOGLOBIN 7.6 g/dL (13.5-17.5); IMMATURE GRANULOCYTES 0.3 % (0-5); MCH 27.1 pg (26.0-34.0); MCHC 30.9 g/dL (31.0-37.0); MCV 87.9 fL (80.0-100.0); MONOCYTES 5.6 % (2-11); NEUTROPHILS 71.8 % (40-80); PLATELET COUNT 228 10x3/uL (130-400); RDW 13.4 % (11.5-14.5); WBC 11.6 10x3/uL (4.8-10.8)
--- NOTE | 2018-07-11 12:07 | NUR ---
THE NURSE FOR DR FRANCOIS AND WANTED A PATIENT CONDITION REPORT, SHE WAS ALSO UPDATED ON THE LATEST LAB RESULTS. SHE STATES SHE WILL GET BACK TO MY AFTER SHE SPEAKS WITH THE DOCTOR THE VASCULAR NURSE IS HERE TO PLACE A MIDLINE FOR THE PATIENT, HE HAS PULLED OUT THE PREVIOUS ONE IN THE UPPER LEFT ARM. THE PATIENT AND FAMILY MEMBERS WERE EDUCATED ON THE NEED FOR THE MIDLINE AND THE PROCESS; PATIENT AND FAMILY AGREE THIS MIDLINE IS NEEDED.
--- NOTE | 2018-07-11 12:32 | NUR ---
CALLED TO ROOM WITH PATIENT STATING, "I CANT' GET ANY AIR DOWN". PULSE OX CHECKED WITH RESULTS OF 96 %. PATIENT STATES THAT SOMETIMES HE USES A FAN AT HOME TO HELP WITH BREATHING. STAND FAN PLACED IN ROOM.
--- NOTE | 2018-07-11 13:48 | NUR ---
LISSETH NEVILLE LPN TO CALL FROM DR FARR OFFICE WITH NEW ORDER OF FAISAL SANCHES AT 0700 AM TOMORROW.
--- NOTE | 2018-07-11 14:06 | NUR ---
I CALLED MIKAL BLUEPRINT DEVELOPER I WAS UNABLE TO HAVE GI LAB ANSWER, TO MAKE SURE PROCEDURE IS ON FOR TOMORROW. SHE STATES THAT IT IS.
--- NOTE | 2018-07-11 14:39 | NUR ---
LAYING ON LEFT SIDE WITH HOB UP AT 30 DEGREES, EYES CLOSED. RESP ARE EVEN AND NON LABORED. STAND FAN IN USE FOR AIR MOVEMENT.
--- NOTE | 2018-07-11 15:15 | MORECARE ---
CASE MANAGEMENT DISCHARGE SUMMARY PATIENT: FELIPE ADDISON UNIT: [id number] ADM DATE: 07/11/18 AGE: 58 : 56 SEX: M ROOM/BED: D.2110 AUTHOR: TRAE MALLOY PHYSICIAN: REFERRING PHYSICIAN: RAMIREZ SERNA MD DATE OF SERVICE: 07/11/18 Discharge Plan Patient Name: [facility]ELIPE ADDISON [facility] [facility] 1960 Planned Disposition: Anticipated Discharge Date: Discharge Date: Expected LOS: Initial Reviewer: [email or web address] Initial Review Date: 07/11/2018 Generated: 07/11/18 4:15 pm Patient Name: FELIPE ADDISON Page 15052 at 1515 All edits/amendments must be made on the electronic document DICTATION DATE: 07/11/18 1515 TABLE KEEPER: GET 07/11/18 1515 RPT#: [id number] DC DATE: STATUS: ADM IN [facility] [address] [place] [address] END OF REPORT
[2018-07-11 16:26] LABS: BASOPHILS 0.3 % (0-2); EOSINOPHILS 3.1 % (0-7); HEMATOCRIT 25.3 % (42.0-54.0); HEMOGLOBIN 7.9 g/dL (13.5-17.5); IMMATURE GRANULOCYTES 0.3 % (0-5); LYMPHOCYTES 11.6 % (15-50); MCH 27.3 pg (26.0-34.0); MCHC 31.2 g/dL (31.0-37.0); MCV 87.5 fL (80.0-100.0); MEAN PLATELET VOLUME 9.9 fL (7.4-10.4); MONOCYTES 5.7 % (2-11); PLATELET COUNT 247 10x3/uL (130-400); RBC 2.89 10x6/uL (4.20-6.10); RDW 13.6 % (11.5-14.5); WBC 11.8 10x3/uL (4.8-10.8)
--- NOTE | 2018-07-11 16:32 | NUR ---
PLACED ON HEART MONITOR (NOW ONE IS AVAIABLE) WITH SR, HR 80.
--- NOTE | 2018-07-11 19:35 | NUR ---
PT RESTING IN BED WITH EYES CLOSED. PT ON 2L O2. PT RESPIRATIONS EVEN AND UNLABORED. PT FAMILY AT BEDSIDE. BED LOW CALL LIGHT WITHIN REACH. WILL CONTINUE TO MONITOR.
--- NOTE | 2018-07-11 23:23 | NUR ---
PT FIRST UNIT OF PRBC STERTED. PT ALERT AND ORIENTED AND VITALS STABLE. PT DENIES ANY NEEDS OR PAIN AT THIS TIME. BED LOW CALL LIGHT WITHIN REACH. WILL CONINUE TO MONITOR.
[2018-07-11 23:42] LABS: HEMATOCRIT 24.5 % (42.0-54.0); HEMOGLOBIN 7.8 g/dL (13.5-17.5); LYMPHOCYTES 14.4 % (15-50); MCH 27.6 pg (26.0-34.0); MCHC 31.8 g/dL (31.0-37.0); MCV 86.6 fL (80.0-100.0); NEUTROPHILS 78.2 % (40-80); PLATELET COUNT 231 10x3/uL (130-400); RBC 2.83 10x6/uL (4.20-6.10); RDW 13.2 % (11.5-14.5); WBC 10.1 10x3/uL (4.8-10.8)
[2018-07-12] VITALS: BP 123/71
[2018-07-12 04:00] VITALS: BP 158/62
--- NOTE | 2018-07-12 04:13 | NUR ---
RESTING IN BED WITH EYES CLOSED. NO S/S OF DISTRESS OBSERVED.
--- NOTE | 2018-07-12 04:56 | NUR ---
PT 20G IV INFILTRATED IN RIGHT UPPER ARM. CATHETER TIP REMOVED. 20G IV ESTABLISHED IN LEFT FOREARM. 2ND UNIT OF BLOOD INFUSING AT 150ML/HR. PT ALERT AND ORIENTED VITALS STABLE. PT DENIES ANY PAIN OR NEEDS AT THIS TIME. WILL CONTINUE TO MONITOR.
--- NOTE | 2018-07-12 07:43 | NUR ---
RECIEVED BEDSIDE REPORT. PT UP IN BED WITH EYES OPEN, FAMILY @BEDSIDE. PT REQUESTED FOR PAIN MEDS, BUT NON-GIVEN @ THIS TIME. PT ALERT BUT NOT ORIENTED TO TIME AND PLACE. WILL CONTINUE POC. CL IN REACH. BED IN LOW.
--- NOTE | 2018-07-12 08:04 | NUR ---
PT BACK FROM GI LAB. EGD COMPLETED. LAST UNIT OF BLOOD COMPLETED. PT WITH SMALL AVMS ON STOMACH. NEW IV STARTED IN GI LAB. WILL CONTINUE CONFORT CARE. CL IN REACH. BED IN LOW.
[2018-07-12 08:25] VITALS: BP 166/77
[2018-07-12 11:14] LABS: ALBUMIN 2.5 g/dL (3.4-5.0); ALKALINE PHOSPHATASE 129 U/L (46-116); ALT (SGPT) 19 U/L (10-68); BILIRUBIN - TOTAL 0.23 mg/dL (0.2-1.3); CALCIUM 8.7 mg/dL (8.5-10.1); CARBON DIOXIDE 32.2 mmol/L (21.0-32.0); CHLORIDE - SERUM 103 mmol/L (98-107); CREATININE - SERUM 0.9 mg/dL (0.6-1.3); MAGNESIUM - SERUM 1.6 mg/dL (1.8-2.4); PHOSPHOROUS 3.2 mg/dL (2.5-4.9); POTASSIUM - SERUM 4.5 mmol/L (3.5-5.1); PROTEIN - SERUM 6.8 g/dL (6.4-8.2); SODIUM 141 mmol/L (136-145); eGFR NON AFRICAN AMERICAN > 90 mL/min (90-120)
[2018-07-12 11:17] LABS: CALC OSMOLALITY 284 mosm/kg (275-300); GLUCOSE 174 mg/dL (74-106); UREA NITROGEN 12 mg/dL (7-18)
[2018-07-12 11:32] LABS: INR 1.03 (0.85-1.17)
[2018-07-12 11:53] VITALS: BP 136/80
[2018-07-12 14:40] LABS: BASOPHILS 0.4 % (0-2); EOSINOPHILS 2.8 % (0-7); HEMATOCRIT 27.8 % (42.0-54.0); HEMOGLOBIN 8.8 g/dL (13.5-17.5); IMMATURE GRANULOCYTES 0.3 % (0-5); LYMPHOCYTES 12.9 % (15-50); MCH 27.9 pg (26.0-34.0); MCHC 31.7 g/dL (31.0-37.0); MCV 88.3 fL (80.0-100.0); MONOCYTES 6.4 % (2-11); NEUTROPHILS 77.2 % (40-80); PLATELET COUNT 254 10x3/uL (130-400); RBC 3.15 10x6/uL (4.20-6.10); RDW 13.7 % (11.5-14.5); WBC 10.4 10x3/uL (4.8-10.8)
[2018-07-12 14:59] VITALS: Ht 172.7 cm; Wt 125.9 kg
[2018-07-12 16:36] VITALS: BP 175/64
--- NOTE | 2018-07-12 17:25 | NUR ---
PT STATES LEFT HAND IV HURTING. IV TAKEN OUT, SITE COVERED WITH GAUZE AND TAPE. PT IV ON THE RIGHT WRIST IS PATENT. PT DENIES NEED FOR PAIN. IV SODIUM FERRIC GLUCONATE ADMINISTERED. WILL CTM. CL IN REACH, BED IN LOW.
--- NOTE | 2018-07-12 19:45 | NUR ---
PT ALERT AND ORIENTED UP WALKING AROUND IN ROOM. FAMILY AT BEDSIDE. PT DENIES ANY NEEDS OR PAIN AT THIS TIME. WILL CONTINUE TO MONITOR.
[2018-07-12 20:04] VITALS: BP 175/68
[2018-07-12 21:37] LABS: HEMATOCRIT 28.3 % (42.0-54.0)
[2018-07-13] VITALS: BP 151/63
[2018-07-13 04:00] VITALS: BP 166/66
--- NOTE | 2018-07-13 04:41 | NUR ---
PT RESTING IN BED COMFORTABLY. RESPIRATIONS EVEN AND UNLABORED. BED LOW CALL LIGHT WITHIN REACH. WILL CONTINUE TO MONITOR.
[2018-07-13 05:45] LABS: ALBUMIN 2.4 g/dL (3.4-5.0); ALKALINE PHOSPHATASE 121 U/L (46-116); ALT (SGPT) 19 U/L (10-68); BILIRUBIN - TOTAL 0.24 mg/dL (0.2-1.3); CALC OSMOLALITY 284 mosm/kg (275-300); CALCIUM 8.3 mg/dL (8.5-10.1); CHLORIDE - SERUM 101 mmol/L (98-107); GLUCOSE 277 mg/dL (74-106); MAGNESIUM - SERUM 1.8 mg/dL (1.8-2.4); PHOSPHOROUS 3.1 mg/dL (2.5-4.9); POTASSIUM - SERUM 4.6 mmol/L (3.5-5.1); PROTEIN - SERUM 6.7 g/dL (6.4-8.2); SODIUM 137 mmol/L (136-145); UREA NITROGEN 16 mg/dL (7-18); eGFR NON AFRICAN AMERICAN 81 mL/min (90-120)
[2018-07-13 05:47] LABS: HEMATOCRIT 27.1 % (42.0-54.0); HEMOGLOBIN 8.7 g/dL (13.5-17.5); LYMPHOCYTES 14.5 % (15-50); MCH 28.2 pg (26.0-34.0); MCHC 32.1 g/dL (31.0-37.0); MEAN PLATELET VOLUME 9.5 fL (7.4-10.4); NEUTROPHILS 75.7 % (40-80); PLATELET COUNT 239 10x3/uL (130-400); RBC 3.08 10x6/uL (4.20-6.10); RDW 13.4 % (11.5-14.5); WBC 8.6 10x3/uL (4.8-10.8)
[2018-07-13 07:58] VITALS: BP 181/73
--- NOTE | 2018-07-13 08:00 | NUR ---
AM ROUNDS COMPLETED. VSS, PT AAO X4. UNLABORED RESP. AM MEDS ADMINISTERED RAMAN WITH 6 UNITS OF HUMALOG. PT STATES HE IS HAVING A HEAD AND NECK PAIN OF 7/10. PRN TYLENOL ADMINISTERED. WILL CONTINUE POC. CL IN REACH BED IN LOW. WILL CTM.
[2018-07-13 11:46] VITALS: BP 129/64
--- NOTE | 2018-07-13 13:01 | NUR ---
PT STATES HE IS TIRED OF SITTING IN THE HOSPITAL AND WANTED TO KNOW WHEN HE IS GOING TO BE DISCHARGED. NOTIFIED HIS SHIFT LAB TECHNICIAN. SHIFT LAB TECHNICIAN SAID TO CALL THE GI DOCTOR. PAGED GI DOCTOR. NO REPLY AT THIS TIME.
--- NOTE | 2018-07-13 13:30 | EC ---
PATIENT:FELIPE ADDISON DATE OF SERVICE: 07/11/18 SEX: M MEDICAL RECORD: [id number] DATE OF : 56 LOCATION:D.M2 D.211 AGE OF PATIENT: 58 ADMISSION DATE: 07/11/18 REFERRING PHYSICIAN: INTERPRETING PHYSICIAN: SAMMI LONGORIA MD ECHOCARDIOGRAM REPORT ECHO CHARGES 4 ECHO COMPLETE Date: 07/11/18 CLINICAL DIAGNOSIS: ANGINA HX CAD/STENTS/HTN ECHOCARDIOGRAPHIC MEASUREMENTS (adult normal given) AC root (d.<3.7cm) 3.6 cm LV Septum d (<1.2 cm> 1.5 cm Valve Excursion 1.5 cm LV Septum (systole) 1.7 cm Left Atria (s.<4.0cm> 5.3 cm LVPW d(<1.2cm) 1.8 cm RV (d.<2.3cm) 3.6 cm LVPW (sytole) 1.9 cm LV diastole(<5.6CM) 6.5 cm MV E-F(>70mm/sec) cm LV systole 4.7 cm LVOT Diameter 1.6 cm MV exc.(>10mm) 1.7 cm Est.ejection fraction (50-75%) % DOPPLER: LVIT cm/sec A 114 cm/sec E 123 cm/sec LA cm/sec RVSP 23 mmHg LVOT 113 cm/sec AOP1/2T m/s Asc. Ao 195 cm/sec RVOT 116 cm/sec RA cm/sec PA 150 cm/sec AV Gradient Peak 15.19mmHg AV Mean 8.83 mmHg AV Area 1.49 cm MV Gradient Peak 9.85 mmHg MV Mean 4.12 mmHg MV Area cm COMMENTS: Watermelon Inspector: 2 BECKA ROTH Electronic Tech: 3 Dr. Darby TAPE# PACS Pericardial Effusion N DATE OF SERVICE: Adequate 2D, color flow, spectral Doppler, and M-Mode. LVH is present. LV internal dimension is normal. Wall motion is normal. EF is greater than or equal to 55%. Aortic valve is tricuspid. No evidence of stenosis on Doppler interrogation. Left atrium is normal. Mitral valve shows no prolapse. Trace MR. Right-sided chamber is grossly normal. Trace TR. TRANSINT:[id number] Voice Confirmation ID: [id number] DOCUMENT ID: [id number] ECHOCARDIOGRAM REPORT [id number] FELIPE ADDISON,SAMMI Sethi MD at 1330 CC: [id number] DICTATION DATE: 07/12/18828 TIN DIPPER: 07/12/18 1009 ADM IN [facility] [address] [id number]
--- NOTE | 2018-07-13 13:30 | CN ---
PATIENT NAME:FELIPE ADDISON MEDICAL RECORD: [id number] : 56 LOCATION:D. D.2110 ADMIT DATE: 07/11/18 ACCOUNT: [id number] CONSULTING PHYSICIAN: SAMMI LONGORIA MD REFERRING PHYSICIAN: RAMIREZ SERNA MD DATE OF CONSULTATION: 07/11/2018 HISTORY OF PRESENT ILLNESS: A 58-year-old gentleman with a history of coronary artery disease, status post intervention, history of obstructive pulmonary disease, on home O2 as well as diabetes mellitus, admitted by his report fairly typical melanotic stools 2 days ago. Also reports tachycardia, hypotension at home, was found to have a hemoglobin of 7.9, currently down to 7.6. He is maintained on low dose aspirin long-term for his coronary artery disease. Had some atypical chest pain as well. This does not sound cardiac. Cardiac enzymes negative so far. PAST MEDICAL HISTORY: Includes: 1. History of hypertension. 2. Hyperlipidemia. 3. Obstructive pulmonary disease. 4. Diabetes mellitus. MEDICATIONS: Include albuterol q.2 p.r.n., Anoro Ellipta one puff b.i.d., Bystolic 20 every day, verapamil 120 b.i.d., aspirin 81 every day, Celebrex 100 b.i.d., Neurontin 200 bedtime, [place] 7/325 one t.i.d., Trulicity as directed, Glucophage 1 gram b.i.d. SOCIAL HISTORY: Nondrinker. Continue to smoke about a pack a day. He is able to take care of his ADLs. REVIEW OF SYSTEMS: The patient reports easy bruising but reports no swollen glands. The patient reports no fever, no night sweats, no significant weight gain, no significant weight loss. No significant exercise tolerance. The patient reports no dry eyes, no irritation, no vision change. Patient reports no difficulty hearing and no ear pain. Patient reports no frequent nose bleeds or nose and sinus problems. Patient reports on arm pain on exertion. No shortness of breath while lying down. No history of heart murmur. Patient reports no cough, no wheezing or coughing up blood. Patient reports no abdominal pain, no vomiting. Normal appetite. No diarrhea and not vomiting blood. No nausea and no constipation. Patient reports no incontinence. No difficulty urinating. No hematuria. No increased frequency. Patient reports no muscle aches. No weakness, no arthralgias, no back pain. No swelling of the extremities. Patient reports no abnormal mole, no jaundice, no rashes. Reports no loss of consciousness. No weakness and no numbness. No seizures, dizziness, or headaches. The patient reports no depression, no sleep disturbance, feeling safe in a relationship and no alcohol abuse. Patient reports on fatigue. Reports no runny nose or sinus pressure. No itching, no hives, and no frequent sneezing. ALLERGIES: SPIRIVA. PHYSICAL EXAMINATION: GENERAL: Well-developed gentleman, in no acute distress. VITAL SIGNS: Blood pressure 169/70, pulse 82 and regular. HEENT: Normocephalic, atraumatic. CONSULT REPORT [id number] FELIPE ADDISON NECK: No JVD or bruit. HEART: Regular. A II/ systolic ejection murmur. LUNGS: Prolonged respiratory phase, few expiratory wheezes. ABDOMEN: Soft, nontender. EXTREMITIES: Pulses are preserved, 2+ with no edema. DIAGNOSTIC DATA: ECG is normal. Cardiac enzymes normal. IMPRESSION: May have had some angina secondary to high output. I do not feel like a fixed obstructive disease at this point. No contraindication scope from my standpoint. Thank you for the consultation. TRANSINT:[id number] Voice Confirmation ID: [id number] DOCUMENT ID: [id number] SAMMI LONGORIA MD at 1330 CC: [id number] DICTATION DATE: 07/11/18 1218 SUPERVISOR COIN MACHINE: 07/11/18 1322 ADM IN [address] [place] [address]
[2018-07-13 14:18] LABS: HEMATOCRIT 29.2 % (42.0-54.0); HEMOGLOBIN 9.5 g/dL (13.5-17.5)
[2018-07-13 16:25] VITALS: BP 158/61
--- NOTE | 2018-07-13 16:30 | NUR ---
STATRTED IV ON LEFT UPPER ARM. 20G. PT TOLERATED WELL. 1 UNIT OF PCRBC GIVEN. PT VSS, AAO X4, PRE AND POST TRANSFUSION VSS STABLE. WILL CTM. PT READY FOR DC. CL IN REACH BED IN [facility].
--- NOTE | 2018-07-14 10:09 | MORECARE ---
CASE MANAGEMENT DISCHARGE SUMMARY PATIENT: FELIPE ADDISON UNIT: [id number] ADM DATE: 07/13/18 AGE: 58 : 56 SEX: M ROOM/BED: D.2110 AUTHOR: TRAE MALLOY PHYSICIAN: REFERRING PHYSICIAN: RAMIREZ SERNA MD DATE OF SERVICE: 07/14/18 Discharge Plan Patient Name: [facility]ELIPE ADDSION [facility] [facility] 1960 Planned Disposition: Home Anticipated Discharge Date: 07/13/18 Discharge Date: 07/13/2018 Expected LOS: 1 Initial Reviewer: [email or web address] Initial Review Date: 07/11/2018 Generated: 07/14/18 11:08 am Coverage Notice Reviewer: [email or web address] Patricia Lee Notice Issued Date-Time: 07/11/2018 16:00 Notice Type: Medicare Outpatient Observation Notice Notice Delivered To: Patient Relationship to Patient: Self Batch Blender Name: Delivery Method: HAND - Hand Delivered Kellee Days: Prior Verbal Notification: Recipient Understood Notice: Yes Recipient Signature: Yes Med Rec Note Co-signed by Attending: Coverage Notice Comment: Last DP export: 07/11/18 2:15 pm Patient Name: FELIPE ADDISON Page 98128 at 1009 All edits/amendments must be made on the electronic document DICTATION DATE: 07/14/181007 PROFESSOR OF LANGUAGES: GET 07/14/18 100 RPT#: [id number] DC DATE:07/13/18 STATUS: DIS IN [facility] [address] [place] [address] END OF REPORT
== END 2018-07-13 22:26 | disposition home or self-care (01) | DRG 377 ==
LOC: D.ER 01:26 → D.M2 04:39 → D.EDHOLD 04:39 → OBSVTIME 04:39 → D.M2 06:33
PROVIDERS: Family Medicine; Internal Medicine Gastroenterology; ADMIT Family Medicine
PROC: 0DB68ZX Excision of Stomach, Via Natural or Artificial Opening Endoscopic, Diagnostic (ICD-10-PCS; 2018-07-12)
PROC: 0D568ZZ Destruction of Stomach, Via Natural or Artificial Opening Endoscopic (ICD-10-PCS; 2018-07-12)
PROC: 0DB58ZX Excision of Esophagus, Via Natural or Artificial Opening Endoscopic, Diagnostic (ICD-10-PCS; principal; 2018-07-12 06:33)
DX: K55.21 Angiodysplasia of colon with hemorrhage (principal); J96.20 Acute and chronic respiratory failure, unspecified whether with hypoxia or hypercapnia; K76.6 Portal hypertension; I25.10 Atherosclerotic heart disease of native coronary artery without angina pectoris; J44.9 Chronic obstructive pulmonary disease, unspecified; D50.9 Iron deficiency anemia, unspecified; E11.65 Type 2 diabetes mellitus with hyperglycemia; E78.5 Hyperlipidemia, unspecified; I11.0 Hypertensive heart disease with heart failure; I50.9 Heart failure, unspecified; K74.60 Unspecified cirrhosis of liver; I08.1 Rheumatic disorders of both mitral and tricuspid valves; F41.9 Anxiety disorder, unspecified; K21.0 Gastro-esophageal reflux disease with esophagitis; K29.00 Acute gastritis without bleeding; K29.80 Duodenitis without bleeding

== ENCOUNTER 2018-07-24 16:36 | Inpatient (IN) | payer MEDICARE ==
[~2018-07-24] VITALS: Ht 172.7 cm; Wt 125.9 kg
--- NOTE | ~2018-07-24 | CN ---
PATIENT NAME:FELIPE NO MEDICAL RECORD: [id number] : 56 LOCATION:D. D.2134 ADMIT DATE: 07/24/18 ACCOUNT: [id number] CONSULTING PHYSICIAN: JANEEN CHERRY MD REFERRING PHYSICIAN: TESFAYE SALAMANCA DO DATE OF CONSULTATION: 07/25/2018 Pulmonary Consultation CONSULT REQUESTING PHYSICIAN: Lupillo Escalona MD REASON FOR CONSULTATION: Pneumonia, shortness of breath. HISTORY OF PRESENT ILLNESS: Mr. No is a 58-year-old gentleman who was hospitalized a few weeks ago for shortness of breath, with pneumonia, COPD exacerbation, discharged home and for the last 3 days, he has worsening shortness of breath, coughing or wheezing. Denies any fever and chills, no night sweats. The patient came into the ER, workup showed the patient had bilateral pneumonia and pleural effusion. REVIEW OF SYSTEMS: As in history of present illness. PAST MEDICAL HISTORY: 1. COPD, home oxygen dependent. 2. Hypertension. 3. Congestive heart failure with chronic diastolic dysfunction. 4. Anxiety, depression. PAST SURGICAL HISTORY: 1. He has a knee surgery. 2. Herniorrhaphy. 3. PCI and stent placement. ALLERGIES: HE IS ALLERGIC TO SPIRIVA. MEDICATIONS: On [facility] is reviewed. PERSONAL AND SOCIAL HISTORY: The patient still continues to smoke. He is a nondrinker. FAMILY HISTORY: Significant for diabetes. PHYSICAL EXAMINATION: GENERAL: The patient is lying comfortably, but he is not in any acute distress. VITAL SIGNS: The blood pressure 183/72, pulse is 77, respirations 18, temperature 97.2, and SpO2 is 95% on 2 liters nasal cannula. HEENT: Conjunctivae are pink. Sclerae are not icteric. NECK: Supple, no JVD. CHEST: The chest excursion is minimal on both sides. There are bilateral crackles. No wheezing. HEART: Rhythm regular, normal sound, no murmur. ABDOMEN: Soft, bowel sounds present. No hepatosplenomegaly. RECTAL: Deferred. EXTREMITIES: No cyanosis, no clubbing, no pedal edema. SKIN: Warm and normal turgor. CONSULT REPORT [id number] FELIPE NO CENTRAL NERVOUS SYSTEM: The patient is awake and alert. There are no obvious skin abnormality. The gait was not tested. IMAGING: CT scan of the chest: There is bilateral small pleural effusion. There are bilateral infiltrate with increased interstitial markings. There is a nonspecific mediastinal lymphadenopathy. There are mild retroperitoneal lymphadenopathy. OTHER LABORATORY DATA: CBC: WBC 15,000, hemoglobin 10.9, hematocrit 36.1, the platelet count is 309. Chemistry: Sodium 136, BUN is 34, creatinine is 1.4. IMPRESSION: 1. Fhwsj-nk-qjcgior hypoxic respiratory failure. 2. Bilateral pneumonia, most likely hospital-acquired pneumonia, patient recent hospitalization. 3. Acute exacerbation of chronic obstructive pulmonary disease. 4. Pleural effusion. 5. Leukocytosis. 6. Dyspnea. 7. Mediastinal lymphadenopathy. 8. Obstructive sleep apnea. The patient is not using any BiPAP. 9. Tobacco dependence syndrome. RECOMMENDATION: 1. I will change antibiotic to cefepime and Levaquin IV. 2. Methylprednisolone IV. 3. Albuterol ipratropium nebulizer. 4. Brovana, budesonide nebulizer. 5. Follow up labs and chest radiograph. 6. Supplemental oxygen is required. 7. Dr. Escalona, thank you for involving me in the care of Mr. No. TRANSINT:[id number] Voice Confirmation ID: [id number] DOCUMENT ID: [id number] JANEEN CHERRY MD CC: [id number] DICTATION DATE: 07/25/18 1633 HOUSE PAINTER HELPER: 07/25/18 214 ADM IN [id number] [place] [address]
[~2018-07-24 16:36] MED LIST changes: +ANORO ELLIPTA1 EACH INH; +CELEBREX50 MG PO; +GABAPENTIN100 MG PO; +TRESIBA FL100 UNIT/1 SQ; +TRULICITY1.5 MG/0.5
[2018-07-24 17:11] LABS: BASOPHILS 0.2 % (0-2); EOSINOPHILS 2.1 % (0-7); HEMATOCRIT 36.1 % (42.0-54.0); HEMOGLOBIN 10.9 g/dL (13.5-17.5); IMMATURE GRANULOCYTES 0.2 % (0-5); LYMPHOCYTES 11.4 % (15-50); MCH 27.1 pg (26.0-34.0); MCHC 30.2 g/dL (31.0-37.0); MCV 89.8 fL (80.0-100.0); MEAN PLATELET VOLUME 10.3 fL (7.4-10.4); MONOCYTES 6.1 % (2-11); RBC 4.02 10x6/uL (4.20-6.10); RDW 15.2 % (11.5-14.5)
[2018-07-24 17:18] LABS: INR 1.1 (0.85-1.17); PROTIME 13.7 SECONDS (11.6-15.0)
[2018-07-24 17:19] LABS: APTT 30.6 SECONDS (22.8-39.4)
[2018-07-24 17:20] LABS: PLATELET COUNT 309 10x3/uL (130-400)
[2018-07-24 17:32] LABS: CALC OSMOLALITY 291 mosm/kg (275-300); CARBON DIOXIDE 29.9 mmol/L (21.0-32.0); CHLORIDE - SERUM 98 mmol/L (98-107); CREATININE - SERUM 1.4 mg/dL (0.6-1.3); GLUCOSE 322 mg/dL (74-106); POTASSIUM - SERUM 4.6 mmol/L (3.5-5.1); SODIUM 136 mmol/L (136-145); TROPONIN-I < 0.017 ng/mL (0.000-0.060); UREA NITROGEN 34 mg/dL (7-18); eGFR NON AFRICAN AMERICAN 55 mL/min (90-120)
[2018-07-24 17:36] LABS: APPEARANCE CLEAR (CLEAR); BILIRUBIN NEGATIVE (NEGATIVE); COLOR YELLOW (YELLOW); GLUCOSE 1000 mg/dL (NEGATIVE); KETONE NEGATIVE (NEGATIVE); NITRITE NEGATIVE (NEGATIVE); PROTEIN TRACE mg/dL (NEGATIVE); SPECIFIC GRAVITY 1.015 (1.005-1.020); UROBILINOGEN NORMAL (NORMAL)
[2018-07-24 17:52] VITALS: BP 166/72
[2018-07-24 18:15] VITALS: BP 153/68
[2018-07-24 19:00] VITALS: BP 155/66
--- NOTE | 2018-07-24 19:05 | NUR ---
HAND-OFF REPORT GIVEN TO DYLON HIGHTOWER
--- NOTE | 2018-07-24 19:17 | NUR ---
PT RESTING ON BED, NO S/S OF ACUTE DISTRESS NOTED AT THIS TIME. PT FAMILY AT BEDSIDE.
[2018-07-24 20:30] VITALS: BP 156/67
--- NOTE | 2018-07-24 20:50 | NUR ---
PT RESTING ON BED, FAMILY AT BEDSIDE.
[2018-07-24 21:30] VITALS: BP 172/77
--- NOTE | 2018-07-24 22:01 | NUR ---
FSBS 108
--- NOTE | 2018-07-24 23:30 | NUR ---
RECEIVED FROM ER, PT IS A&O X4, ASKING FOR SOMETHING TO EAT, PROVIDED A SANDWICH, ADMISSION HISTORY AND MEDS COMPLETE, BED IS LOW, SRX2, CALL LIGHT IN REACH, WILL CONTINUE PLAN OF CARE
[2018-07-25 00:11] VITALS: BP 183/85
[2018-07-25] MEDS ORDERED: PRAVASTATIN SOD10 MG (01:02)
[2018-07-25] MEDS ORDERED: CELEBREX200 MG PO (01:03)
--- NOTE | 2018-07-25 01:11 | NUR ---
SELENE RN- RESITED IV TO [facility] X 2ATTEMPT
[2018-07-25 03:50] VITALS: BP 149/82
--- NOTE | 2018-07-25 04:26 | NUR ---
REQUESTING BS BE CHECKED-51, GAVE IGL COHN, WILL RECHECK
[2018-07-25 04:54] VITALS: BP 183/85; BMI 42.2
--- NOTE | 2018-07-25 07:00 | NUR ---
RECEIVED REPORT. ASSUMED CARE OF PATIENT. CALL LIGHT WITHIN REACH. THIS PATIENT AWAKE, ORIENTED. ASKS THIS CAR WASH ATTENDANT IF I REMEMBER HIM FROM TAKING CARE OF HIM ON PREVIOUS VISITS. RESP EVEN AND UNLABORED. NO DISTRESS.
--- NOTE | 2018-07-25 07:30 | NUR ---
PATIENT STATES HE FEELS SWEATY AND CLAMMY. FSBS CHECKED AND RESULTED 50. ORANGE JUICE, PEANUT CRACKERS PROVIDED. PATIENT STATES HE IS NOT SURE WHY IS BLOOD SUGAR IS BOTTOMING OUT BUT THIS HAPPENED LESS THAN A COUPLE HOURS AGO ALSO. PATIENT DENIES USE OF INSULIN PUMP AND NO RECENT CHANGE TO MEDICATION.
[2018-07-25 09:47] VITALS: BP 183/72
--- NOTE | 2018-07-25 11:41 | NUR ---
FSBS 153. REFUSED INSULIN AT THIS TIME FSBS HAS BEEN DROPPING ALL AM AND BEING TREATED ORALLY. NO DISTRESS.
[2018-07-25 13:51] VITALS: Ht 172.7 cm; Wt 125.9 kg
--- NOTE | 2018-07-25 16:44 | MORECARE ---
CASE MANAGEMENT DISCHARGE SUMMARY PATIENT: FELIPE ADDISON UNIT: [id number] ADM DATE: 07/24/18 AGE: 58 : 56 SEX: M ROOM/BED: D.2134 AUTHOR: TRAE MALLOY PHYSICIAN: REFERRING PHYSICIAN: TESFAYE SALAMANCA DO DATE OF SERVICE: 07/25/18 Discharge Plan Patient Name: FELIPE ADDISON [facility] [facility] 1960 Planned Disposition: Home Anticipated Discharge Date: 07/28/18 Discharge Date: Expected LOS: 4 Initial Reviewer: [email or web address] Initial Review Date: 07/25/2018 Generated: 07/25/18 5:44 pm DCPIA - Discharge Planning Initial Assessment Updated by [email or web address]: Jillian Vasques on 07/25/18 4:39 pm * Is the patient Alert and Oriented? Yes * How many steps to enter\exit or inside your home? * PCP DR. GIRALDO * Pharmacy [facility] * Preadmission Environment Home with Family * ADLs Independent * Equipment Glucometer Oxygen * Other Equipment PATIENT HAS PORTABLE OXYGEN (LINCARE) * List name and contact numbers for known caregivers / representatives who currently or will assist patient after discharge: GABY () [phone] * Verbal permission to speak to the caregivers and representatives has been obtained from the patient. Yes * Community resources currently utilized None * Additional services required to return to the preadmission environment? Yes * Can the patient safely return to the preadmission environment? Yes * Has this patient been hospitalized within the prior 30 days at any hospital? Yes Patient Name: FELIPE ADDISON Page 15575 at 1644 All edits/amendments must be made on the electronic document DICTATION DATE: 07/25/181643 HEALTH AND SAFETY REPRESENTATIVE: GET 07/25/181643 RPT#: [id number] DC DATE: STATUS: ADM IN [address] [place] [address] END OF REPORT
--- NOTE | 2018-07-25 19:35 | NUR ---
GREETED PATIENT AND INTRODUCED MYSELF HIS NURSE FOR THE EVENING. PATIENT STATES THAT HE IS HAVING A HEADACHE AT THIS TIME. CALL LIGHT IN REACH.
--- NOTE | 2018-07-25 20:02 | NUR ---
ADMINISTERED PRN NORCO FOR THROBBING HEADACHE PAIN 7/10 ON 0-10 PAIN SCALE. TM.
[2018-07-25 20:41] VITALS: BP 192/81
--- NOTE | 2018-07-25 22:49 | NUR ---
PATIENT AWAKE AND LAYING IN BED WATCHING TV. RESPIRATIONS EVEN. NO SIGNS OF DISTRESS. DENIES ANY NEEDS AT THIS TIME. CALL LIGHT IN REACH.
--- NOTE | 2018-07-25 23:35 | NUR ---
PATIENT AWAKE AND REQUESTING KLONOPIN FOR FEELING ON EDGE.
[2018-07-26] VITALS (7 sets, daily range): BP systolic 134–192; BP diastolic 73–87
--- NOTE | 2018-07-26 01:00 | NUR ---
PATIENT AWAKE LAYING IN BED WATCHING TV. DENIES ANY NEEDS AT THIS TIME. WCTM. CALL LIGHT IN REACH.
--- NOTE | 2018-07-26 03:00 | NUR ---
PATIENT AWAKE AND LAYING IN BED WATCHING TV AND LOOKING AT PERSONAL CELL PHONE. PATIENT IS REQUESTING A CUP OF COFFEE. RESPIRATIONS EVEN. NO SIGNS OF DISTRESS. CALL LIGHT IN REACH.
[2018-07-26 06:13] LABS: ALBUMIN 2.6 g/dL (3.4-5.0); ALKALINE PHOSPHATASE 150 U/L (46-116); ALT (SGPT) 17 U/L (10-68); BILIRUBIN - TOTAL 0.26 mg/dL (0.2-1.3); CARBON DIOXIDE 28.5 mmol/L (21.0-32.0); CHLORIDE - SERUM 97 mmol/L (98-107); GLUCOSE 333 mg/dL (74-106); MAGNESIUM - SERUM 1.9 mg/dL (1.8-2.4); PROTEIN - SERUM 8.1 g/dL (6.4-8.2); UREA NITROGEN 26 mg/dL (7-18)
[2018-07-26 06:16] LABS: BASOPHILS 0 % (0-2); EOSINOPHILS 0.1 % (0-7); HEMATOCRIT 37.2 % (42.0-54.0); HEMOGLOBIN 11.4 g/dL (13.5-17.5); IMMATURE GRANULOCYTES 0.3 % (0-5); LYMPHOCYTES 5.2 % (15-50); MCHC 30.6 g/dL (31.0-37.0); MCV 88.2 fL (80.0-100.0); MEAN PLATELET VOLUME 10.8 fL (7.4-10.4); MONOCYTES 0.4 % (2-11); PLATELET COUNT 298 10x3/uL (130-400); RBC 4.22 10x6/uL (4.20-6.10); RDW 14.9 % (11.5-14.5)
[2018-07-26 06:17] LABS: WBC 9.3 10x3/uL (4.8-10.8)
[2018-07-26 06:44] LABS: CALC OSMOLALITY 283 mosm/kg (275-300); SODIUM 133 mmol/L (136-145)
[2018-07-26 07:13] LABS: POTASSIUM - SERUM 5.6 mmol/L (3.5-5.1); eGFR NON AFRICAN AMERICAN 81 mL/min (90-120)
--- NOTE | 2018-07-26 07:36 | NUR ---
RESUMING PT CARE, PT LAYING IN BED ALERT AND ORIENTED X3, RESPIRATIONS EVEN AND UNLABORED. BED IS IN LOWEST POSITION WITH RAILS UP X2. CALL LIGHT IN REACH, WILL CONTINUE TO MONITOR AND FOLLOW PLAN OF CARE.
--- NOTE | 2018-07-26 10:29 | NUR ---
RESP UL ON . IV PATENT. CALL LIGHT IN REACH. WILL CONT. PLAN OF CARE.
--- NOTE | 2018-07-26 21:53 | NUR ---
BS 411 CALLED DO SAFETY TECHNICIAN SHAHNAZ SHE ADVISED TO FOLLOW SLIDING SCALE ...GAVE 12UNITS OF HUMALOG
--- NOTE | 2018-07-26 22:17 | NUR ---
RESUMING CARE PT LAYING IN BED A&O O2 ON AT 21/2 NS IN IN RT HAND SL PT HAD ELEVATED BP LAST BP WAS 142/80 VIA RENE CUFF NO C/O OF PAIN OR5 DISTRESS AT THIS TIME CL IN REACH WILL CONT TO MONITOR
--- NOTE | 2018-07-26 22:20 | NUR ---
BP 140/75 VIA RENE CUFF
[2018-07-27] VITALS: BP 100/64
[2018-07-27 04:55] VITALS: BP 121/58
--- NOTE | 2018-07-27 05:31 | NUR ---
BS 317 8 UNITS OF HUMALOG GIVEN PER SLIDING SCALE
[2018-07-27 06:40] LABS: ALBUMIN 2.5 g/dL (3.4-5.0); ANION GAP 12.5 mmol/L (8-16); BILIRUBIN - TOTAL 0.16 mg/dL (0.2-1.3); CALCIUM 8.7 mg/dL (8.5-10.1); MAGNESIUM - SERUM 2.2 mg/dL (1.8-2.4); POTASSIUM - SERUM 5.5 mmol/L (3.5-5.1); PROTEIN - SERUM 7.1 g/dL (6.4-8.2)
[2018-07-27 06:46] LABS: CREATININE - SERUM 1.4 mg/dL (0.6-1.3)
[2018-07-27 08:19] LABS: BASOPHILS 0.1 % (0-2); EOSINOPHILS 0 % (0-7); HEMATOCRIT 31.6 % (42.0-54.0); HEMOGLOBIN 9.8 g/dL (13.5-17.5); IMMATURE GRANULOCYTES 0.1 % (0-5); LYMPHOCYTES 4.8 % (15-50); MCH 26.9 pg (26.0-34.0); MCV 86.8 fL (80.0-100.0); MONOCYTES 2.2 % (2-11); NEUTROPHILS 92.8 % (40-80); PLATELET COUNT 292 10x3/uL (130-400); RBC 3.64 10x6/uL (4.20-6.10); RDW 14.8 % (11.5-14.5)
[2018-07-27 08:20] LABS: WBC 13.9 10x3/uL (4.8-10.8)
[2018-07-27 08:23] VITALS: BP 149/70
--- NOTE | 2018-07-27 10:34 | NUR ---
RESP UL ON . CALL LIGHT IN REACH. WILL CONT. PLAN OF CARE.
[2018-07-27] MEDS ORDERED: LEVAQUIN750 MG PO (12:30)
[2018-07-27] MEDS ORDERED: PREDNISONE10 MG PO (12:30)
[2018-07-27] MEDS ORDERED: FLORAJEN3 CAPS460 MG PO (12:32)
[2018-07-27 12:42] VITALS: BP 151/63
--- NOTE | 2018-07-27 13:59 | MORECARE ---
CASE MANAGEMENT DISCHARGE SUMMARY PATIENT: FELIPE ADDISON UNIT: [id number] ADM DATE: 07/24/18 AGE: 58 : 56 SEX: M ROOM/BED: D.2138 AUTHOR: TRAE MALLOY PHYSICIAN: REFERRING PHYSICIAN: TESFAYE SALAMANCA DO DATE OF SERVICE: 07/27/18 Discharge Plan Patient Name: FELIPE ADDISON Facility: [facility]:[place] : 1960 Planned Disposition: Home Anticipated Discharge Date: 07/27/18 Discharge Date: Expected LOS: 3 Initial Reviewer: [email or web address] Initial Review Date: 07/25/2018 Generated: 07/27/18 2:58 pm Comments DCP- Discharge Planning Updated by [email or web address]: Isidro Mishra on 07/27/18 12:[address] Patient Name: FELIPE ADDISON Encounter No: [id number] : 1960 Primary Insurance: MEDICARE A & B Anticipated DC Date: 07-27-2018 Planned Disposition: Home DCP follow-up note: CM RECEIVED DISCHARGE ORDER, MET WITH PT IN ROOM TO DISCUSS DISCHARGE NEEDS AND PLANNING. CM DISCUSSED AVAILABILITY OF HOME HEALTH, REHAB SERVICES AND MEDICAL EQUIPMENT. PT DENIES DISCHARGE NEEDS. SPOUSE TO TRANSPORT HOME AT DISCHARGE. IMPORTANT MESSAGE FROM MEDICARE PROVIDED AND EXPLAINED. SHAFT MECHANIC NURSE NOTIFIED. ALEXEI RODRIGUEZ DCP- Discharge Planning Updated by [email or web address]: Jillian Vasques on 07/25/18 3:[address] Patient Name: FELIPE ADDISON Admission Status: ER Accout number: [id number] Admission Date: 07-24-2018 : 1960 Admission Diagnosis: Attending: TESFAYE SALAMANCA Current LOS: 1 Anticipated DC Date: 07-28-2018 Planned Disposition: Home Primary Insurance: MEDICARE A & B Discharge Planning Comments: CM MET WITH PATIENT REGARDING D/C NEEDS AND PLANS. PATIENT STATED HIS (GABY) WILL DRIVE HIM HOME AT DISCHARGE. THERE ARE 3 STEPS TO ENTER HIS HOME AND NO STAIRS INSIDE. PATIENT STATED HE IS INDEPENDENT WITH HIS CARE AND HAS OXYGEN AT HS, PORTABLE O2, AND GLUCOMETER AT HOME. [facility] SUPPLIES PATIENTS OXYGEN. PATIENTS PHARMACY IS [facility] AND HIS PCP IS DR. GIRALDO. PATIENT REFUSED HOME HEALTH. CM WILL CONTINUE TO FOLLOW PATIENT WITH D/C NEEDS AND PLANS. PCP DR. [facility] () [phone] Cook Jelly: Jillian Baronmel DCPIA - Discharge Planning Initial Assessment Updated by [id number]: Jillian Vasques on 07/25/18 4:39 pm * Is the patient Alert and Oriented? Yes * How many steps to enter\exit or inside your home? * PCP DR. GIRALDO * Pharmacy [facility] * Preadmission Environment Home with Family * ADLs Independent * Equipment Glucometer Oxygen * Other Equipment PATIENT HAS PORTABLE OXYGEN (LINCARE) * List name and contact numbers for known caregivers / representatives who currently or will assist patient after discharge: GABY () [phone] * Verbal permission to speak to the caregivers and representatives has been obtained from the patient. Yes * Community resources currently utilized None * Additional services required to return to the preadmission environment? Yes * Can the patient safely return to the preadmission environment? Yes * Has this patient been hospitalized within the prior 30 days at any hospital? Yes Coverage Notice Reviewer: [email or web address] Patricia Mishra Notice Issued Date-Time: 07/27/2018 13:45 Notice Type: IM Discharge Notice Notice Delivered To: Patient Relationship to Patient: Tree Loader Meat Name: Delivery Method: HAND - Hand Delivered Kellee Days: Prior Verbal Notification: Recipient Understood Notice: Yes Recipient Signature: Yes Med Rec Note Co-signed by Attending: Coverage Notice Comment: Last DP export: 07/25/18 3:44 p Patient Name: FELIPE ADDISON Page 89428 at 1359 All edits/amendments must be made on the electronic document DICTATION DATE: 07/27/18 1358 STARTER CUP POWDER MIXER: GET 07/27/18 1358 RPT#: [id number] DC DATE: STATUS: ADM IN [facility] [address] [place] [address] END OF REPORT
--- NOTE | 2018-07-27 19:18 | NUR ---
PT D/C'D TO TRANSPORTED VIA WHEELCHAIR
== END 2018-07-27 19:50 | disposition home or self-care (01) | DRG 193 ==
LOC: D.ER 16:36 → D.EDHOLD 21:33 → D.M2 21:33
PROVIDERS: Emergency Medicine; Family Medicine; ADMIT Family Medicine
DX: J18.9 Pneumonia, unspecified organism (principal); J96.21 Acute and chronic respiratory failure with hypoxia; K55.21 Angiodysplasia of colon with hemorrhage; J44.0 Chronic obstructive pulmonary disease with (acute) lower respiratory infection; I50.32 Chronic diastolic (congestive) heart failure; J44.1 Chronic obstructive pulmonary disease with (acute) exacerbation; K76.6 Portal hypertension; F17.213 Nicotine dependence, cigarettes, with withdrawal; I11.0 Hypertensive heart disease with heart failure; F41.9 Anxiety disorder, unspecified; F32.9 Major depressive disorder, single episode, unspecified; G47.33 Obstructive sleep apnea (adult) (pediatric); R59.1 Generalized enlarged lymph nodes; I25.10 Atherosclerotic heart disease of native coronary artery without angina pectoris; E11.65 Type 2 diabetes mellitus with hyperglycemia; K74.60 Unspecified cirrhosis of liver

== ENCOUNTER 2019-07-06 00:49 | Emergency (ER) | payer MEDICARE ==
[~2019-07-06] VITALS: Ht 172.7 cm; Wt 11.8 kg
[~2019-07-06 00:49] MED LIST changes: +CELEBREX200 MG PO; +FLORAJEN3 CAPS460 MG PO; +PRAVASTATIN SOD10 MG
[2019-07-06 01:02] VITALS: Ht 172.7 cm; Wt 11.8 kg
[2019-07-06] MEDS ORDERED: HYDROCODON-ACE1 EA10 PO (01:59)
[2019-07-06 02:03] VITALS: BP 167/98
[2019-07-06] MEDS ORDERED: MEDROL DOSE PACK4 MG PO (13:09)
[2019-07-06] MEDS ORDERED: CYCLOBENZAPRINE10 MG PO (13:09)
[2019-07-06] MEDS ORDERED: HYDROCODON-ACE1 EAC7 PO (13:09)
== END 2019-07-06 02:06 | disposition home or self-care (01) ==
LOC: D.ER 00:49
DX: M54.5 Low back pain (principal); M54.32 Sciatica, left side; E11.9 Type 2 diabetes mellitus without complications; I10 Essential (primary) hypertension; I25.10 Atherosclerotic heart disease of native coronary artery without angina pectoris; Z72.0 Tobacco use; J44.9 Chronic obstructive pulmonary disease, unspecified; Z99.81 Dependence on supplemental oxygen; Z79.84 Long term (current) use of oral hypoglycemic drugs

== ENCOUNTER 2019-07-06 11:01 | Emergency (ER) | payer MEDICARE ==
[~2019-07-06] VITALS: Ht 172.7 cm; Wt 118.2 kg
[~2019-07-06 11:01] MED LIST changes: +HYDROCODON-ACE1 EA10 PO
[2019-07-06 11:02] VITALS: Ht 172.7 cm; Wt 118.2 kg
[2019-07-06] MEDS ORDERED: HYDROCODON-ACE1 EAC7 PO (13:09)
[2019-07-06] MEDS ORDERED: CYCLOBENZAPRINE10 MG PO (13:09)
[2019-07-06] MEDS ORDERED: MEDROL DOSE PACK4 MG PO (13:09)
[2019-07-06 13:41] VITALS: BP 129/94
== END 2019-07-06 13:42 | disposition home or self-care (01) ==
LOC: D.ER 11:01
DX: S32.039A Unspecified fracture of third lumbar vertebra, initial encounter for closed fracture (principal); W19.XXXA Unspecified fall, initial encounter; Y93.9 Activity, unspecified; Y92.9 Unspecified place or not applicable; E11.40 Type 2 diabetes mellitus with diabetic neuropathy, unspecified; Z79.4 Long term (current) use of insulin; I10 Essential (primary) hypertension; Z72.0 Tobacco use; Z79.84 Long term (current) use of oral hypoglycemic drugs; M51.26 Other intervertebral disc displacement, lumbar region

== ENCOUNTER 2019-07-14 09:43 | Emergency (ER) | payer MEDICARE ==
[~2019-07-14] VITALS: Ht 172.7 cm; Wt 0.0 kg
[~2019-07-14 09:43] MED LIST changes: +CYCLOBENZAPRINE10 MG PO; +HYDROCODON-ACE1 EAC7 PO; +MEDROL DOSE PACK4 MG PO
[2019-07-14 09:48] VITALS: Ht 172.7 cm; Wt 0.0 kg
[2019-07-14] MEDS ORDERED: VOLTAREN75 MG PO (11:19)
[2019-07-14 11:32] VITALS: BP 154/88
== END 2019-07-14 11:33 | disposition home or self-care (01) ==
LOC: D.ER 09:43
DX: M25.552 Pain in left hip (principal); W19.XXXA Unspecified fall, initial encounter; Y93.9 Activity, unspecified; Y92.9 Unspecified place or not applicable; E11.40 Type 2 diabetes mellitus with diabetic neuropathy, unspecified; I10 Essential (primary) hypertension; Z79.84 Long term (current) use of oral hypoglycemic drugs; Z79.4 Long term (current) use of insulin

== ENCOUNTER 2019-08-27 20:24 | Inpatient (IN) | payer MEDICARE ==
[~2019-08-27] VITALS: Ht 172.7 cm; Wt 112.5 kg
[~2019-08-27 20:24] MED LIST changes: +DALIRESP250 MCG PO; +KLONOPIN0.5 MG PO; +LEVOFLOXACIN500 MG PO; +METHOCARBAMOL750 MG PO; +MUCINEX600 MG PO; -PRAVASTATIN SOD10 MG; +TESSALON PERLE100 MG PO; +VOLTAREN75 MG PO
[2019-08-27] MEDS ORDERED: MEDROL4 MG PO (20:37)
--- NOTE | 2019-08-27 20:52 | NUR ---
RT AT BEDSIDE FOR UPDRAFT AND ABG
[2019-08-27 21:06] LABS: BASOPHILS 0 % (0-2); EOSINOPHILS 0 % (0-7); HEMATOCRIT 34.2 % (42.0-54.0); HEMOGLOBIN 10.4 g/dL (13.5-17.5); LYMPHOCYTES 6.1 % (15-50); MCH 26.5 pg (26.0-34.0); MCHC 30.4 g/dL (31.0-37.0); MCV 87.2 fL (80.0-100.0); MEAN PLATELET VOLUME 10.4 fL (7.4-10.4); MONOCYTES 2.2 % (2-11); NEUTROPHILS 91.7 % (40-80); RBC 3.92 10x6/uL (4.20-6.10); RDW 14.3 % (11.5-14.5); WBC 5.9 10x3/uL (4.8-10.8)
[2019-08-27 21:11] LABS: PLATELET COUNT 203 10x3/uL (130-400)
[2019-08-27 21:20] LABS: INR 0.95 (0.85-1.17); PROTIME 12.7 SECONDS (11.6-15.0)
[2019-08-27 21:21] LABS: APTT 26.4 SECONDS (22.8-39.4)
--- NOTE | 2019-08-27 21:28 | NUR ---
SPUTUM COLLECTION TAKEN TO LAB
[2019-08-27 21:30] VITALS: BP 143/81
[2019-08-27 21:54] LABS: ALKALINE PHOSPHATASE 202 U/L (30-120); ALT (SGPT) 29 U/L (10-68); CARBON DIOXIDE 31.1 mmol/L (21.0-32.0); CHLORIDE - SERUM 95 mmol/L (98-107); CKMB 0.8 U/L (0.0-3.6); CREATINE KINASE 62 UL (21-232); CREATININE - SERUM 1.1 mg/dL (0.6-1.3); POTASSIUM - SERUM 5.4 mmol/L (3.5-5.1); PRO BNP 507 pg/mL (0-125); PROTEIN - SERUM 7.1 g/dL (6.4-8.2); SODIUM 129 mmol/L (136-145); UREA NITROGEN 17 mg/dL (7-18); eGFR NON AFRICAN AMERICAN 72 mL/min (90-120)
[2019-08-27 21:55] LABS: CALC OSMOLALITY 286 mosm/kg (275-300); TROPONIN-I < 0.017 ng/mL (0.000-0.060)
[2019-08-27 21:56] LABS: GLUCOSE 569 mg/dL (74-106)
--- NOTE | 2019-08-27 22:10 | NUR ---
FSBS 550, EDP REKHA NOTIFIED. VERBAL ORDER FOR HUMALOG 10 UNITS SC GIVEN.
--- NOTE | 2019-08-27 22:59 | NUR ---
PT ARRIVED ON UNIT VIA WHEELCHAIR ESCORTED BY ER NURSE AND SPOUSE. ORIENTED TO ROOM AND CALL LIGHT. WENT OVER HOME MEDICATIONS.
--- NOTE | 2019-08-27 23:08 | NUR ---
HS MEDICATIONS GIVEN. WILL CONTINUE TO MONITOR FOR NEEDS.
[2019-08-27 23:38] VITALS: BP 188/73; BMI 37.7
[2019-08-28] VITALS: BP 188/73
[2019-08-28 04:00] VITALS: BP 137/72
[2019-08-28 06:29] LABS: CALC OSMOLALITY 284 mosm/kg (275-300); CALCIUM 8.5 mg/dL (8.5-10.1); CARBON DIOXIDE 32.6 mmol/L (21.0-32.0); CHLORIDE - SERUM 98 mmol/L (98-107); POTASSIUM - SERUM 4.6 mmol/L (3.5-5.1); SODIUM 134 mmol/L (136-145); UREA NITROGEN 17 mg/dL (7-18); eGFR NON AFRICAN AMERICAN 81 mL/min (90-120)
[2019-08-28 06:31] LABS: GLUCOSE 368 mg/dL (74-106)
[2019-08-28 06:33] LABS: BASOPHILS 0.2 % (0-2); EOSINOPHILS 0.9 % (0-7); HEMATOCRIT 31.3 % (42.0-54.0); HEMOGLOBIN 9.9 g/dL (13.5-17.5); LYMPHOCYTES 16.7 % (15-50); MCH 26.8 pg (26.0-34.0); MCHC 31.6 g/dL (31.0-37.0); MEAN PLATELET VOLUME 10.5 fL (7.4-10.4); MONOCYTES 5.9 % (2-11); NEUTROPHILS 76.3 % (40-80); PLATELET COUNT 208 10x3/uL (130-400); RDW 14.1 % (11.5-14.5); WBC 6.4 10x3/uL (4.8-10.8)
[2019-08-28 06:41] LABS: MCV 84.6 fL (80.0-100.0)
[2019-08-28 09:10] VITALS: BP 155/63
[2019-08-28 10:01] VITALS: Ht 172.7 cm; Wt 112.5 kg
--- NOTE | 2019-08-28 10:41 | NUR ---
medicated at this time with norco and flexeril for c/o back pain . c/l in reach at bedside.
[2019-08-28 12:52] VITALS: BP 137/51
[2019-08-28 16:20] VITALS: BP 140/65
--- NOTE | 2019-08-28 18:38 | NUR ---
I have reviewed this patient and I concur with the Shift Assessment completed by the Licensed Practical Nurse today this shift.
--- NOTE | 2019-08-28 19:00 | NUR ---
BEDSIDE REPORT RECEIVED AND CARE OF PT ASSUMED. PT LYING IN SUPINE POSITION VISITING WITH SPOUSE. IV TO RIGHT FA SALINE LOCKED. O2 IN USE VIA NC AT 3L. WILL MONITOR FOR NEEDS.
[2019-08-28 20:00] VITALS: BP 162/66
--- NOTE | 2019-08-28 21:39 | NUR ---
HS MEDICATIONS GIVEN TO INCLUDE NORCO FOR PAIN , KLONOPIN FOR ANXIETY, AND FLEXERIL FOR MUSCLE RELAXATION PER REQUEST. FSBS 269 THIS CHECK REQUIRING COVERAGE WITH 16 UNITS OF INSULIN. WILL CONTINUE TO MONITOR FOR NEEDS.
[2019-08-29 04:00] VITALS: BP 128/66
--- NOTE | 2019-08-29 06:06 | NUR ---
COLLECTED URINE FOR ORDERED STUDIES AND DELIVERED TO PROCESS TRAINER.
--- NOTE | 2019-08-29 07:15 | NUR ---
REC'D IN BED AWAKE AND ALERT. RESP EVEN AND UNLABORED WITH NO DISTRESS NOTED. CAN EXPRESS NEEDS AND WANTS. AMBULATE WITH SLOW AND STEADY GAIT. ASSESSMENT COMPLETED. C/L IN REACH AT BEDSIDE.
[2019-08-29 07:44] LABS: BILIRUBIN NEGATIVE (NEGATIVE); GLUCOSE 1000 mg/dL (NEGATIVE); KETONE NEGATIVE (NEGATIVE); NITRITE NEGATIVE (NEGATIVE); SPECIFIC GRAVITY 1.015 (1.005-1.020); UROBILINOGEN NORMAL (NORMAL)
[2019-08-29 08:23] VITALS: BP 140/55
--- NOTE | 2019-08-29 11:29 | NUR ---
C/O BACK PAIN RATING 8/10 ON PAIN SCALE WAS MEDICATED WITH NORCO PER ORDERS. C/L IN REACH AT BEDSIDE.
[2019-08-29 12:27] VITALS: BP 166/76
--- NOTE | 2019-08-29 12:32 | NUR ---
I have reviewed this patient and I concur with the Shift Assessment completed by the Licensed Practical Nurse today this shift.
--- NOTE | 2019-08-29 13:11 | EC ---
PATIENT:FELIPE ADDISON DATE OF SERVICE: 08/27/19 SEX: M MEDICAL RECORD: [id number] DATE OF : 56 LOCATION:D.MS Muñoz AGE OF PATIENT: 59 ADMISSION DATE: 08/27/19 REFERRING PHYSICIAN: INTERPRETING PHYSICIAN: SAMMI LONGORIA MD ECHOCARDIOGRAM REPORT ECHO CHARGES 4 ECHO COMPLETE Date: 08/28/19 CLINICAL DIAGNOSIS: DYSPNEA ECHOCARDIOGRAPHIC MEASUREMENTS (adult normal given) AC root (d.<3.7cm) 3.0 cm LV Septum d (<1.2 cm> 1.8 cm Valve Excursion 1.1 cm LV Septum (systole) 2.5 cm Left Atria (s.<4.0cm> 5.2 cm LVPW d(<1.2cm) 1.7 cm RV (d.<2.3cm) 3.6 cm LVPW (sytole) 2.6 cm LV diastole(<5.6CM) 5.7 cm MV E-F(>70mm/sec) cm LV systole 2.8 cm LVOT Diameter 2.2 cm MV exc.(>10mm) cm Est.ejection fraction (50-75%) % DOPPLER: LVIT cm/sec A 117 cm/sec E 95.0 cm/sec LA cm/sec RVSP 23.1 mmHg LVOT 96.0 cm/sec AOP1/2T m/s Asc. Ao 222 cm/sec RVOT 95.0 cm/sec RA cm/sec PA 111 cm/sec AV Gradient Peak 20.0 mmHg AV Mean 12.0 mmHg AV Area 1.9 cm MV Gradient Peak 6.9 mmHg MV Mean 2.1 mmHg MV Area cm COMMENTS: Power Mule Operator: Morena ANGUIANOOE Roll Up Guider Operator: 3 Dr. Darby TAPE# PACS Pericardial Effusion N DATE OF SERVICE: Adequate 2D, color flow imaging, spectral Doppler, and M-Mode. LVH is present. LV internal dimension is normal. Wall motion is normal. EF is greater than or equal to 55%. Aortic valve is calcified with no restriction of leaflet motion. Peak gradient of 20 mmHg. There is very mild range. Left atrium dilated at 5.2 cm and shows no prolapse. Trivial MR. Right-sided chambers are grossly normal. Trivial TR. ECHOCARDIOGRAM REPORT [id number] FELIPE ADDISON TRANSINT:[id number] Voice Confirmation ID: [id number] DOCUMENT ID: [id number] SAMMI LONGORIA MD at 1311 CC: [id number] DICTATION DATE: 08/28/19 150 FORM BLOCK MAKER: 08/28/19 2348 ADM IN [place] [id number] [place] [address]
[2019-08-29] MEDS ORDERED: LEVAQUIN750 MG PO (14:55)
[2019-08-29] MEDS ORDERED: PREDNISONE10 MG PO (14:57)
[2019-08-29 15:29] LABS: % SATURATION 11 % (15-55); IRON 28 ug/dl (35-150); TOTAL IRON BIND CAPACITY 247 ug/dl (260-445); UNSAT IRON BIND CAPACITY 219 ug/dl (150-375)
--- NOTE | 2019-08-29 15:57 | MORECARE ---
CASE MANAGEMENT DISCHARGE SUMMARY PATIENT: FELIPE ADDISON UNIT: [id number] ADM DATE: 08/27/19 AGE: 59 : 56 SEX: M ROOM/BED: D.2201 AUTHOR: TRAE MALLOY PHYSICIAN: REFERRING PHYSICIAN: EMELY GIORDANO MD DATE OF SERVICE: 08/29/19 Discharge Plan Patient Name: FELIPE ADDISON [facility] [facility] 1960 Planned Disposition: Home Anticipated Discharge Date: Discharge Date: Expected LOS: Initial Reviewer: [email or web address] Initial Review Date: 08/27/2019 Generated: 08/29/19 4:57 pm Comments DCP- Discharge Planning Updated by [email or web address]: Melissa Kendall on 08/29/19 2:[address] Patient Name: FELIPE ADDISON Admission Status: ER Accout number: [id number] Admission Date: 08-27-2019 : 1960 Admission Diagnosis: Attending: EMELY GIORDANO Current LOS: 2 Anticipated DC Date: Planned Disposition: Home Primary Insurance: MEDICARE A & B Discharge Planning Comments: Patient is ready for discharge. I met with him and he states his is taking him home. States he has portable oxygen, oxygen and nebulizer from [facility]. States he lives with his and is independent with his care. Denies needs. Home today with . Clinical Services Assistant: Melissa Kendall Patient Name: FELIPE ADDISON Page 99330 at 1557 All edits/amendments must be made on the electronic document DICTATION DATE: 08/29/19 1557 PAPER AND PULP MILL OPERATOR: GET 08/29/19 1557 RPT#: [id number] DC DATE: STATUS: ADM IN [facility] [address] [place] [address] END OF REPORT
--- NOTE | 2019-08-29 16:11 | NUR ---
DC HOME AT THIS TIME. VOICE UNDERSTANDING OF DC INSTRUCTION. IV DC. STABLE CONDITION UPON DEPARTURE.
--- NOTE | 2019-08-30 16:51 | MORECARE ---
CASE MANAGEMENT DISCHARGE SUMMARY PATIENT: FELIPE ADDISON UNIT: [id number] ADM DATE: 08/27/19 AGE: 59 : 56 SEX: M ROOM/BED: D.2201 AUTHOR: TRAE MALLOY PHYSICIAN: REFERRING PHYSICIAN: EMELY GIORDANO MD DATE OF SERVICE: 08/30/19 Discharge Plan Patient Name: FELIPE ADDISON [facility] [facility] 1960 Planned Disposition: Home Anticipated Discharge Date: Discharge Date: 08/29/2019 Expected LOS: 0 Initial Reviewer: [email or web address] Initial Review Date: 08/27/2019 Generated: 08/30/19 5:51 pm Comments DCP- Discharge Planning Updated by [email or web address]: Melissa Kendall on 08/29/19 2:[address] Patient Name: FELIPE ADDISON Admission Status: ER Accout number: [id number] Admission Date: 08-27-2019 : 1960 Admission Diagnosis: Attending: EMELY GIORDANO Current LOS: 2 Anticipated DC Date: Planned Disposition: Home Primary Insurance: MEDICARE A & B Discharge Planning Comments: Patient is ready for discharge. I met with him and he states his is taking him home. States he has portable oxygen, oxygen and nebulizer from [facility]. States he lives with his and is independent with his care. Denies needs. Home today with . Asset Protection Officer: Melissa Kendall Last DP export: 08/29/19 2:57 p Patient Name: FELIPE ADDISON Page 81291 at 1651 All edits/amendments must be made on the electronic document DICTATION DATE: 08/30/19 165 SAMMYING MACHINE OPERATOR: GET 08/30/191650 RPT#: [id number] DC DATE:08/29/19 STATUS: DIS IN [facility] [address] [place] [address] END OF REPORT
== END 2019-08-29 16:35 | disposition home or self-care (01) | DRG 189 ==
LOC: D.ER 20:24 → D.MS 22:00
PROVIDERS: Emergency Medicine; ADMIT Internal Medicine Nephrology; ATTEND Internal Medicine Nephrology
DX: J96.21 Acute and chronic respiratory failure with hypoxia (principal); I50.33 Acute on chronic diastolic (congestive) heart failure; J44.1 Chronic obstructive pulmonary disease with (acute) exacerbation; F17.203 Nicotine dependence unspecified, with withdrawal; K76.6 Portal hypertension; E87.1 Hypo-osmolality and hyponatremia; I11.0 Hypertensive heart disease with heart failure; E11.65 Type 2 diabetes mellitus with hyperglycemia; K74.60 Unspecified cirrhosis of liver; E87.5 Hyperkalemia; E11.40 Type 2 diabetes mellitus with diabetic neuropathy, unspecified; I25.10 Atherosclerotic heart disease of native coronary artery without angina pectoris

== ENCOUNTER 2019-12-25 18:59 | Observation (INO) | payer MEDICARE ==
[~2019-12-25] VITALS: Ht 172.7 cm; Wt 118.5 kg
--- NOTE | ~2019-12-25 | EC ---
PATIENT:FELIPE ADDISON DATE OF SERVICE: 12/25/19 SEX: M MEDICAL RECORD: [id number] DATE OF : 56 LOCATION:D.M2 D.210 AGE OF PATIENT: 59 ADMISSION DATE: 12/25/19 REFERRING PHYSICIAN: INTERPRETING PHYSICIAN: JABIER DAVIS MD ECHOCARDIOGRAM REPORT ECHO CHARGES 4 ECHO COMPLETE Date: 12/26/19 CLINICAL DIAGNOSIS: CP, HX:CAD ECHOCARDIOGRAPHIC MEASUREMENTS (adult normal given) AC root (d.<3.7cm) 2.8 cm LV Septum d (<1.2 cm> 1.4 cm Valve Excursion 1.7 cm LV Septum (systole) 1.7 cm Left Atria (s.<4.0cm> 5.2 cm LVPW d(<1.2cm) 1.2 cm RV (d.<2.3cm) 3.3 cm LVPW (sytole) 1.7 cm LV diastole(<5.6CM) 5.9 cm MV E-F(>70mm/sec) cm LV systole 3.8 cm LVOT Diameter 2.0 cm MV exc.(>10mm) cm Est.ejection fraction (50-75%) % DOPPLER: LVIT cm/sec A 95 cm/sec E 103 cm/sec LA cm/sec RVSP 17.0 mmHg LVOT 82 cm/sec AOP1/2T m/s Asc. Ao 165 cm/sec RVOT 79 cm/sec RA cm/sec PA 98 cm/sec AV Gradient Peak 10.8 mmHg AV Mean 6.6 mmHg AV Area 1.4 cm MV Gradient Peak 6.7 mmHg MV Mean 3.3 mmHg MV Area cm COMMENTS: Automotive Design Drafter: Roxanne BELTRAN Flat Folder: 4 Dr. Davis TAPE# PACS Pericardial Effusion N DATE OF SERVICE: PROCEDURE: Transthoracic echocardiogram. Left ventricle has mild enlargement. There is left ventricular hypertrophy and evidence of diastolic dysfunction. Left atrium is moderately to significantly enlarged to 5.2 cm. The aortic valve appears to be mildly thickened, but otherwise normal. ECHOCARDIOGRAM REPORT [id number] FELIPE ADDISON There is mild mitral regurgitation. Tricuspid valve is structurally normal. Right ventricle was mildly enlarged, normal function. Right atrium is normal. IMPRESSION: Evidence of hypertensive heart disease, but otherwise normal echocardiogram. TRANSINT:[id number] Voice Confirmation ID: [id number] DOCUMENT ID: [id number] JABIER DAVIS MD CC: [id number] DICTATION DATE: 12/27/19 0744 ODD TICKET CLERK: 12/27/19 1347 DIS IN 12/26/19 [place] [id number] [facility]
[~2019-12-25 18:59] MED LIST changes: +MEDROL4 MG PO
[2019-12-25 19:36] LABS: BASOPHILS 0.3 % (0-2); EOSINOPHILS 2.2 % (0-7); HEMATOCRIT 40.7 % (42.0-54.0); HEMOGLOBIN 12.3 g/dL (13.5-17.5); IMMATURE GRANULOCYTES 0.1 % (0-5); LYMPHOCYTES 13.1 % (15-50); MCH 26.5 pg (26.0-34.0); MCHC 30.2 g/dL (31.0-37.0); MCV 87.5 fL (80.0-100.0); MEAN PLATELET VOLUME 11.1 fL (7.4-10.4); MONOCYTES 7.2 % (2-11); NEUTROPHILS 77.1 % (40-80); PLATELET COUNT 278 10x3/uL (130-400); RBC 4.65 10x6/uL (4.20-6.10); RDW 13.9 % (11.5-14.5); WBC 7.9 10x3/uL (4.8-10.8)
[2019-12-25 19:40] LABS: APTT 27.4 SECONDS (22.8-39.4); INR 0.87 (0.85-1.17); PROTIME 11.9 SECONDS (11.6-15.0)
[2019-12-25 19:50] LABS: ALBUMIN 2.9 g/dL (3.4-5.0); ALKALINE PHOSPHATASE 175 U/L (30-120); ALT (SGPT) 22 U/L (10-68); BILIRUBIN - TOTAL 0.23 mg/dL (0.2-1.3); CALC OSMOLALITY 281 mosm/kg (275-300); CALCIUM 9.2 mg/dL (8.5-10.1); CARBON DIOXIDE 31.3 mmol/L (21.0-32.0); CHLORIDE - SERUM 94 mmol/L (98-107); CKMB 0.9 U/L (0.0-3.6); CREATINE KINASE 76 UL (21-232); CREATININE - SERUM 1.1 mg/dL (0.6-1.3); MAGNESIUM - SERUM 1.7 mg/dL (1.8-2.4); POTASSIUM - SERUM 4.6 mmol/L (3.5-5.1); SODIUM 132 mmol/L (136-145); TROPONIN-I < 0.017 ng/mL (0.000-0.060); UREA NITROGEN 13 mg/dL (7-18); eGFR NON AFRICAN AMERICAN 72 mL/min (90-120)
[2019-12-25 19:55] LABS: C-REACTIVE PROTEIN 1.8 mg/dL (0.0-0.9); THYROID STIMULATING HORMONE 1.9 uIU/mL (0.36-3.74)
[2019-12-25 19:58] LABS: GLUCOSE 411 mg/dL (74-106)
--- NOTE | 2019-12-25 20:15 | NUR ---
PT TO CT
--- NOTE | 2019-12-25 20:32 | NUR ---
PT BACK FROM CT AT THIS TIME.
[2019-12-25 21:02] VITALS: BP 168/76
--- NOTE | 2019-12-25 21:20 | NUR ---
FSBS 224
[2019-12-25 21:44] LABS: UDS - AMPHET NEGATIVE QUAL (NEGATIVE); UDS - BARB NEGATIVE QUAL (NEGATIVE); UDS - BENZO NEGATIVE QUAL (NEGATIVE); UDS - COCAINE NEGATIVE QUAL (NEGATIVE); UDS - OPIATE POSITIVE QUAL (NEGATIVE); UDS - PCP NEGATIVE QUAL (NEGATIVE); UDS - THC NEGATIVE QUAL (NEGATIVE)
[2019-12-25 22:43] LABS: BILIRUBIN NEGATIVE (NEGATIVE); GLUCOSE 1000 mg/dL (NEGATIVE); KETONE NEGATIVE (NEGATIVE); NITRITE NEGATIVE (NEGATIVE); UROBILINOGEN NORMAL (NORMAL)
--- NOTE | 2019-12-25 23:00 | NUR ---
NO TELEMETRY AVAILABLE AT THIS TIME.
--- NOTE | 2019-12-25 23:57 | NUR ---
RECEIVED PATIENT TO ROOM 2109 @ 2250. PATIENT IS AAOX4, UP AD LIZZIE. NO S/S OF DISTRESS OBSERVED, RR EVEN AND UNLABORED ON 3L O2 VIA NC. QUICK START, MED REC, ADULT HX, SRS, FPOC ALL COMPLETED. PATIENT REQUESTED A SANDWICH TRAY, GIVEN. INFORMED PATIENT OF NPO STATUS AFTER MIDNIGHT DUE TO CARDIOLOGY CONSULT. PATIENT UNDERSTANDS. CL IN REACH, BED LOCKED AND LOWERED. WILL CTM.
[2019-12-25 23:58] VITALS: BP 184/85
[2019-12-26 04:05] VITALS: BP 112/51
[2019-12-26 04:55] VITALS: BP 184/85; BMI 39.7
[2019-12-26 08:11] VITALS: BP 124/65
[2019-12-26 11:01] VITALS: Ht 172.7 cm; Wt 118.5 kg
[2019-12-26 11:33] LABS: BASOPHILS 0.3 % (0-2); EOSINOPHILS 2.1 % (0-7); HEMATOCRIT 37.4 % (42.0-54.0); HEMOGLOBIN 11.4 g/dL (13.5-17.5); IMMATURE GRANULOCYTES 0.1 % (0-5); LYMPHOCYTES 15.3 % (15-50); MCH 26.4 pg (26.0-34.0); MCHC 30.5 g/dL (31.0-37.0); MCV 86.6 fL (80.0-100.0); MEAN PLATELET VOLUME 10.3 fL (7.4-10.4); MONOCYTES 6.8 % (2-11); NEUTROPHILS 75.4 % (40-80); PLATELET COUNT 259 10x3/uL (130-400); RBC 4.32 10x6/uL (4.20-6.10); RDW 13.8 % (11.5-14.5); WBC 6.8 10x3/uL (4.8-10.8)
[2019-12-26 11:42] VITALS: BP 149/72
[2019-12-26 11:44] LABS: ALBUMIN 2.7 g/dL (3.4-5.0); ALKALINE PHOSPHATASE 147 U/L (30-120); ALT (SGPT) 18 U/L (10-68); CALCIUM 8.5 mg/dL (8.5-10.1); CARBON DIOXIDE 35.3 mmol/L (21.0-32.0); CHLORIDE - SERUM 100 mmol/L (98-107); CREATININE - SERUM 0.9 mg/dL (0.6-1.3); MAGNESIUM - SERUM 1.8 mg/dL (1.8-2.4); POTASSIUM - SERUM 4.5 mmol/L (3.5-5.1); PROTEIN - SERUM 6.4 g/dL (6.4-8.2); SODIUM 136 mmol/L (136-145); UREA NITROGEN 12 mg/dL (7-18); eGFR NON AFRICAN AMERICAN > 90 mL/min (90-120)
[2019-12-26 11:46] LABS: CALC OSMOLALITY 275 mosm/kg (275-300); GLUCOSE 171 mg/dL (74-106)
--- NOTE | 2019-12-26 15:00 | NUR ---
I have reviewed this patient and I concur with the Shift Assessment completed by the Licensed Practical Nurse today this shift.
--- NOTE | 2019-12-26 16:24 | NUR ---
PT LEFT VIA WHEELCHAIR TO PERSONAL VEHICLE. PT REFUSED JTO HAVE BRING OXYGEN TANK UP TO ROOM STATED HE WOULD "BE OKAY UNTIL I GET TO THE CAR". STATED HE HAD ENOUGH OXYGWEN IN THE TANK TO LAST HIM UNTIL HE GOT HOME AND THAT HE KNEW HOW TO PROPERLY USE IT. D/C INSTRUCTIONS SIGNED AND NO FURTHER QUESTIONS AT THIS TIME. IV D/C WITH CATHETER TIP INTACT. MONITOR REMOVED AND RETURNED TO [facility].
--- NOTE | 2019-12-27 07:31 | MORECARE ---
CASE MANAGEMENT DISCHARGE SUMMARY PATIENT: FELIPE ADDISON UNIT: [id number] ADM DATE: 12/25/19 AGE: 59 : 56 SEX: M ROOM/BED: D.2109 AUTHOR: TRAE MALLOY PHYSICIAN: REFERRING PHYSICIAN: BEBETO PERALTA MD DATE OF SERVICE: 12/27/19 Discharge Plan Patient Name: FELIPE ADDISON [facility] [facility] 1960 Planned Disposition: Anticipated Discharge Date: Discharge Date: 12/26/2019 Expected LOS: 0 Initial Reviewer: [email or web address] Initial Review Date: 12/25/2019 Generated: 12/27/19 8:30 am Patient Name: FELIPE ADDISON Page 52663 at 0731 All edits/amendments must be made on the electronic document DICTATION DATE: 12/27/19729 MEAT APPRENTICE: GET 12/27/19729 RPT#: [id number] DC DATE:12/26/19 STATUS: DIS IN [facility] [address] [facility] [place] [address] END OF REPORT
== END 2019-12-26 16:31 | disposition home or self-care (01) ==
LOC: D.ER 18:59 → OBSVTIME 21:23 → D.M2 21:23
PROVIDERS: Family Medicine; ADMIT Family Medicine; ATTEND Family Medicine
DX: I25.110 Atherosclerotic heart disease of native coronary artery with unstable angina pectoris (principal); E11.65 Type 2 diabetes mellitus with hyperglycemia; D64.9 Anemia, unspecified; E87.1 Hypo-osmolality and hyponatremia; E11.40 Type 2 diabetes mellitus with diabetic neuropathy, unspecified; J44.9 Chronic obstructive pulmonary disease, unspecified; J45.909 Unspecified asthma, uncomplicated; J96.11 Chronic respiratory failure with hypoxia; K74.60 Unspecified cirrhosis of liver; F41.9 Anxiety disorder, unspecified; I35.0 Nonrheumatic aortic (valve) stenosis; I10 Essential (primary) hypertension

== ENCOUNTER → 2020-01-14 10:24 | Outpatient (CLI) | payer MEDICARE ==
[2019-12-26 11:01] VITALS: BMI 39.7
== END | disposition home or self-care (01) ==
LOC: D.LAB 10:24
PROVIDERS: ATTEND Internal Medicine Pulmonary Disease
DX: Z11.59 Encounter for screening for other viral diseases (principal)

== ENCOUNTER → 2020-01-16 07:29 | Outpatient (CLI) | payer MEDICARE ==
[2019-12-26 11:01] VITALS: BMI 39.7
== END | disposition home or self-care (01) ==
LOC: D.RT 12-28 10:00
PROVIDERS: ATTEND Internal Medicine Pulmonary Disease
DX: J44.9 Chronic obstructive pulmonary disease, unspecified (principal); Z11.59 Encounter for screening for other viral diseases

== ENCOUNTER 2020-09-03 13:06 | Inpatient (IN) | payer MEDICARE ==
[~2020-09-03] VITALS: Ht 172.7 cm; Wt 113.2 kg
[~2020-09-03 13:06] MED LIST changes: +ATARAX 25 MG TA25 MG PO; +DULERA 200 MCG8.8 GM INH; +GABAPENTIN300 MG PO; +ISOSORBIDE MONO30 M1 PO; +LASIX40 MG; +OMNICEF125 MG/5 M PO; -TRULICITY1.5 MG/0.5; +TRULICITY1.5 MG/0.5 SQ; +ZITHROMAX250 MG PO; +[UNRECOGNIZED DRUG - OTHER] SQ
--- NOTE | 2020-09-03 13:30 | NUR ---
PT ARRIVED VIA WHEELCHAIR AT THIS TIME. O2 IN PLACE VIA PORTABLE O2. PT PLACED ON 4L NC. RR EVEN NON LABORED, PT AMBULATED TO BED WITHOUT ASSISTANCE. PT AAOX3, PLEASANT AND ANSWERS QUESTIONS APPROP. IV PLACED TO LEFT UPPER ARM X1, BLOOD RETURN NOTED, 20G. PT GIVEN WATER PER REQUEST. NO FURTHER NEEDS VOICED AT THIS TIME. CLWR.
[2020-09-03 13:35] VITALS: BP 176/51; Ht 172.7 cm; Wt 113.2 kg
--- NOTE | 2020-09-03 14:13 | NUR ---
HOME MEDICATIONS PLACED IN CHART PER ORDER TO RESUME.
[2020-09-03 14:35] LABS: ALBUMIN 2.5 g/dL (3.4-5.0); ANION GAP 5.2 mmol/L (8-16); BASOPHILS 0 % (0-2); BILIRUBIN - TOTAL 0.21 mg/dL (0.2-1.3); CALCIUM 9.2 mg/dL (8.5-10.1); CARBON DIOXIDE 39.5 mmol/L (21.0-32.0); CREATININE - SERUM 1.2 mg/dL (0.6-1.3); EOSINOPHILS 0.7 % (0-7); HEMOGLOBIN 10.2 g/dL (13.5-17.5); IMMATURE GRANULOCYTES 0.2 % (0-5); LYMPHOCYTE ABS# 0.55 10x3/uL (1.32-3.57); LYMPHOCYTES 4.8 % (15-50); MCH 24.7 pg (26.0-34.0); MCHC 28.3 g/dL (31.0-37.0); MCV 87.2 fL (80.0-100.0); MEAN PLATELET VOLUME 10.4 fL (7.4-10.4); MONOCYTES 3.8 % (2-11); NEUTROPHIL ABS# 10.41 10x3/uL (1.78-5.38); NEUTROPHILS 90.5 % (40-80); POTASSIUM - SERUM 5.7 mmol/L (3.5-5.1); PROTEIN - SERUM 6.5 g/dL (6.4-8.2); RBC 4.13 10x6/uL (4.20-6.10); WBC 11.5 10x3/uL (4.8-10.8)
[2020-09-03 15:19] LABS: PLATELET COUNT 198 10x3/uL (130-400)
--- NOTE | 2020-09-03 16:32 | NUR ---
ACHS FINGERSTCK AND INSULIN GIVEN. PT LYING IN BED ON RIGHT SIDE WATCHING TV. RR EVEN NON LABORED WITH O2 IN PLACE. NO NEEDS VOICED. CLWR.
[2020-09-03 16:50] VITALS: BP 184/76
[2020-09-03 21:34] VITALS: BP 169/77
[2020-09-04 00:40] VITALS: BP 169/54
--- NOTE | 2020-09-04 04:05 | NUR ---
I have reviewed this patient and I concur with the Shift Assessment completed by the Licensed Practical Nurse today this shift.
[2020-09-04 05:41] LABS: BILIRUBIN NEGATIVE (NEGATIVE); KETONE NEGATIVE (NEGATIVE); NITRITE NEGATIVE (NEGATIVE); UROBILINOGEN NORMAL mg/dL (< 2)
[2020-09-04 06:06] VITALS: BP 121/90
[2020-09-04 06:06] LABS: BASOPHILS 0 % (0-2); EOSINOPHILS 0 % (0-7); HEMATOCRIT 34.3 % (42.0-54.0); HEMOGLOBIN 9.8 g/dL (13.5-17.5); IMMATURE GRANULOCYTES 0.1 % (0-5); LYMPHOCYTE ABS# 0.52 10x3/uL (1.32-3.57); LYMPHOCYTES 6.1 % (15-50); MCH 24.7 pg (26.0-34.0); MCHC 28.6 g/dL (31.0-37.0); MCV 86.4 fL (80.0-100.0); MEAN PLATELET VOLUME 10.9 fL (7.4-10.4); MONOCYTES 1.3 % (2-11); NEUTROPHIL ABS# 7.93 10x3/uL (1.78-5.38); NEUTROPHILS 92.5 % (40-80); PLATELET COUNT 199 10x3/uL (130-400); RBC 3.97 10x6/uL (4.20-6.10); RDW 14.8 % (11.5-14.5)
[2020-09-04 06:14] LABS: WBC 8.6 10x3/uL (4.8-10.8)
[2020-09-04 06:36] LABS: ALBUMIN 2.3 g/dL (3.4-5.0); BILIRUBIN - TOTAL 0.19 mg/dL (0.2-1.3); CALCIUM 9.4 mg/dL (8.5-10.1); CARBON DIOXIDE 39.6 mmol/L (21.0-32.0); CREATININE - SERUM 1.1 mg/dL (0.6-1.3); MAGNESIUM - SERUM 1.8 mg/dL (1.8-2.4); PHOSPHOROUS 3.9 mg/dL (2.5-4.9); POTASSIUM - SERUM 5.6 mmol/L (3.5-5.1); PROTEIN - SERUM 6.3 g/dL (6.4-8.2)
[2020-09-04 08:02] VITALS: BP 193/91
[2020-09-04 11:10] VITALS: BP 178/66
[2020-09-04 14:45] LABS: INR 0.98 (0.85-1.17)
[2020-09-04 14:53] VITALS: BP 176/77
[2020-09-04 20:50] VITALS: BP 160/60
[2020-09-05] VITALS (7 sets, daily range): BP systolic 158–172; BP diastolic 64–78
[2020-09-05 04:50] LABS: BASOPHILS 0 % (0-2); EOSINOPHILS 0 % (0-7); HEMATOCRIT 32.3 % (42.0-54.0); HEMOGLOBIN 9.6 g/dL (13.5-17.5); IMMATURE GRANULOCYTES 0.3 % (0-5); LYMPHOCYTE ABS# 1.05 10x3/uL (1.32-3.57); LYMPHOCYTES 8.3 % (15-50); MCH 24.7 pg (26.0-34.0); MCHC 29.7 g/dL (31.0-37.0); MEAN PLATELET VOLUME 10.4 fL (7.4-10.4); MONOCYTES 5.5 % (2-11); NEUTROPHILS 85.9 % (40-80); PLATELET COUNT 211 10x3/uL (130-400); RBC 3.89 10x6/uL (4.20-6.10); RDW 14.9 % (11.5-14.5)
[2020-09-05 04:51] LABS: WBC 12.7 10x3/uL (4.8-10.8)
--- NOTE | 2020-09-05 05:00 | NUR ---
I have reviewed this patient and I concur with the Shift Assessment completed by the Licensed Practical Nurse today this shift.
[2020-09-05 05:11] LABS: ALBUMIN 2.4 g/dL (3.4-5.0); ANION GAP 7.7 mmol/L (8-16); BILIRUBIN - TOTAL 0.21 mg/dL (0.2-1.3); CALCIUM 9.1 mg/dL (8.5-10.1); CARBON DIOXIDE 37.2 mmol/L (21.0-32.0); CREATININE - SERUM 1.2 mg/dL (0.6-1.3); MAGNESIUM - SERUM 1.4 mg/dL (1.8-2.4); PHOSPHOROUS 3.1 mg/dL (2.5-4.9); POTASSIUM - SERUM 4.9 mmol/L (3.5-5.1); PROTEIN - SERUM 6.3 g/dL (6.4-8.2)
--- NOTE | 2020-09-05 05:54 | NUR ---
PATIENT LYING SEMI FOLWERS AAOX4, RESP EVEN AND NON LABORED, NO S/S OF DISTRESS, MEDICATIONS ADMINISTERED, NO FURTHER NEEDS, CLIR, BLP
--- NOTE | 2020-09-05 07:15 | NUR ---
RECEIVE SHIFT REPORT. RESTING IN BED. DENIES ANY NEEDS AT THIS TIME. DISCUSSED THAT HE IS TO HAVE NOTHING TO EAT OR DRINK OR HE CANNOT HAVE HIS PROCEDURE TODAY. STATES THAT HE UNDERSTANDS AND IS WAITING. NO FOOD OR DRINK PRESENT TO ME. WILL CONTINUE POC AND SAFETY PRECAUTIONS. BUMEX DRIP @10ML/HR. CALL LIGHT IN REACH.
--- NOTE | 2020-09-05 10:46 | NUR ---
BACK FROM PARACENTESIS. AWAKE AND ALERT. VS PER PROTOCOL.
--- NOTE | 2020-09-05 11:15 | NUR ---
STATES NOT FEELING WELL. CHECKED BLOOD SUGAR, IT WAS 39. GAVE IV 25ML OF D50. WILL RECHECK SUGAR IN 30 MINUTES.
[2020-09-05 15:20] LABS: PROTEIN - BODY FLUID 1.2 G/DL
[2020-09-05 16:49] LABS: MACROPHAGES BF 57 %; MESOTHELIALS BF 4 %; NEUT - BF 9 %
--- NOTE | 2020-09-05 21:32 | NUR ---
REPORT RECEIVED, WILL CONT POC. PT A&O, UP IN BED WATCHING TV. NO S/S OF DISTRESS OBSERVED. RR EVEN & UNLABORED ON 3L NC. BED LOCKED AND LOWERED, CL IN REACH. ASSESSMENT COMPLETE. WILL CONT TO MONITOR.
[2020-09-06] VITALS (7 sets, daily range): BP systolic 108–175; BP diastolic 46–64
[2020-09-06 05:16] LABS: BASOPHILS 0 % (0-2); HEMATOCRIT 31.6 % (42.0-54.0); HEMOGLOBIN 9.4 g/dL (13.5-17.5); IMMATURE GRANULOCYTES 0.1 % (0-5); LYMPHOCYTE ABS# 1.22 10x3/uL (1.32-3.57); MCHC 29.7 g/dL (31.0-37.0); MEAN PLATELET VOLUME 10.5 fL (7.4-10.4); MONOCYTES 7.2 % (2-11); NEUTROPHIL ABS# 5.78 10x3/uL (1.78-5.38); NEUTROPHILS 75.7 % (40-80); PLATELET COUNT 173 10x3/uL (130-400); RBC 3.76 10x6/uL (4.20-6.10); RDW 15.1 % (11.5-14.5)
[2020-09-06 05:18] LABS: WBC 7.6 10x3/uL (4.8-10.8)
[2020-09-06 05:58] LABS: ALBUMIN 2.2 g/dL (3.4-5.0); ALKALINE PHOSPHATASE 127 U/L (30-120); ALT (SGPT) 31 U/L (10-68); BILIRUBIN - TOTAL 0.26 mg/dL (0.2-1.3); CALC OSMOLALITY 284 mosm/kg (275-300); CHLORIDE - SERUM 93 mmol/L (98-107); CREATININE - SERUM 1.2 mg/dL (0.6-1.3); GLUCOSE 136 mg/dL (74-106); MAGNESIUM - SERUM 1.4 mg/dL (1.8-2.4); PHOSPHOROUS 4.3 mg/dL (2.5-4.9); POTASSIUM - SERUM 4.1 mmol/L (3.5-5.1); PROTEIN - SERUM 5.6 g/dL (6.4-8.2); SODIUM 136 mmol/L (136-145); UREA NITROGEN 43 mg/dL (7-18); eGFR NON AFRICAN AMERICAN 65 mL/min (90-120)
--- NOTE | 2020-09-06 08:12 | NUR ---
PT RECEIVED AWAKE AND ALERT. ASKING FOR PAIN MEDS. MEDICATED AND IV BUMEX STOPPED AND ORAL GIVEN.
--- NOTE | 2020-09-06 20:00 | NUR ---
INITIAL ROUNDS AND ASSESSMENT COMPLETED. PT RESTING IN BED. SR PER TELEMETRY. O2 @ 3L/NC WITH NON LABORED RESPIRATIONS. PIV SALINE LOCKED TO LFA. CALL LIGHT IN REACH.
[2020-09-07] VITALS: BP 152/64
[2020-09-07 04:00] VITALS: BP 123/63
[2020-09-07 04:55] LABS: BASOPHILS 0 % (0-2); EOSINOPHILS 2.1 % (0-7); HEMATOCRIT 31.6 % (42.0-54.0); HEMOGLOBIN 9.2 g/dL (13.5-17.5); IMMATURE GRANULOCYTES 0.2 % (0-5); LYMPHOCYTE ABS# 1.14 10x3/uL (1.32-3.57); LYMPHOCYTES 17.1 % (15-50); MCH 24.7 pg (26.0-34.0); MCHC 29.1 g/dL (31.0-37.0); MCV 84.9 fL (80.0-100.0); MEAN PLATELET VOLUME 10.1 fL (7.4-10.4); MONOCYTES 7.4 % (2-11); NEUTROPHIL ABS# 4.88 10x3/uL (1.78-5.38); NEUTROPHILS 73.2 % (40-80); PLATELET COUNT 163 10x3/uL (130-400); RBC 3.72 10x6/uL (4.20-6.10); RDW 15.4 % (11.5-14.5); WBC 6.7 10x3/uL (4.8-10.8)
[2020-09-07 05:58] LABS: ALBUMIN 2.2 g/dL (3.4-5.0); ANION GAP 0.4 mmol/L (8-16); BILIRUBIN - TOTAL 0.34 mg/dL (0.2-1.3); CALCIUM 9.3 mg/dL (8.5-10.1); CREATININE - SERUM 1.3 mg/dL (0.6-1.3); MAGNESIUM - SERUM 1.6 mg/dL (1.8-2.4); PHOSPHOROUS 4.2 mg/dL (2.5-4.9); POTASSIUM - SERUM 4.7 mmol/L (3.5-5.1); PROTEIN - SERUM 5.5 g/dL (6.4-8.2)
[2020-09-07 06:06] LABS: CARBON DIOXIDE 45.3 mmol/L (21.0-32.0)
[2020-09-07 07:00] VITALS: BP 103/57
--- NOTE | 2020-09-07 11:37 | MORECARE ---
CASE MANAGEMENT DISCHARGE SUMMARY PATIENT: FELIPE NO UNIT: [id number] ADM DATE: 09/03/20 AGE: 60 : 56 SEX: M ROOM/BED: D.2102 AUTHOR: GAMA,DOC PHYSICIAN: REFERRING PHYSICIAN: TRISTAN DUQUE MD DATE OF SERVICE: 09/07/20 Discharge Plan Patient Name: FELIPE NO Facility: [facility]:[place] : 1960 Planned Disposition: Home Anticipated Discharge Date: 09/07/20 Discharge Date: Expected LOS: 4 Initial Reviewer: [email or web address] Initial Review Date: 09/03/2020 Generated: 09/07/20 12:36 pm Comments DCP- Discharge Planning Updated by [email or web address]: Toni Mccall on 09/07/20 10:[address] CM met with patient to complete DC plan and to evaluate needs. Patient lives independently with his spouse, Marina No ([phone]). At discharge, the patient plans to return home and feels this is a safe discharge. The patient stated that he readmitted after 7 days of last hospitalization because he "...had too much fluid". Patient stated that he went to his follow up appointment and was told to return to the hospital. Patient stated that he has diagnosed with liver cirrhosis a few years ago but this is the first time he has had "...fluid build up". Patient stated that he was able to obtain his new medications and was taking them appropriately. CM discussed availability of home health, rehab services, and medical equipment. Patient declined HHS, SNF, IPR, and DME. Patient voiced no other needs at this time and is satisfied with DC plan. DC IMM delivered, explained, signed by the patient, and placed in chart. Signed form also left with the patient. CM will continue to follow and will assist as needed with dc plans/needs. DCPIA - Discharge Planning Initial Assessment Updated by [id number]: Toni Mccall on 09/07/20 11:36 am * Is the patient Alert and Oriented? Yes * How many steps to enter\\exit or inside your home? 4/0 * PCP GIRALDO * [facility] * Preadmission Environment Home with Family * ADLs Independent * Other Equipment HOME / PORTABLE 02 - [employer] * List name and contact numbers for known caregivers / representatives who currently or will assist patient after discharge: CYN - GAIL - [phone] * Verbal permission to speak to the caregivers and representatives has been obtained from the patient. Yes * Community resources currently utilized None * Please name any agencies selected above. n/a * Additional services required to return to the preadmission environment? No * Can the patient safely return to the preadmission environment? Yes * Has this patient been hospitalized within the prior 30 days at any hospital? Yes Patient Name: FELIPE NO Page 75924 at 1137 All edits/amendments must be made on the electronic document DICTATION DATE: 09/07/201136 BODY BUILDER: GET 09/07/201136 RPT#: [id number] DC DATE: STATUS: ADM IN [facility] [address] [place] [address] END OF REPORT
[2020-09-07] MEDS ORDERED: PERFOROMIS20 MCG/21 INH (13:00)
[2020-09-07] MEDS ORDERED: BUMEX2 MG PO (13:01)
[2020-09-07] MEDS ORDERED: ALDACTONE25 MG PO (13:01)
[2020-09-07] MEDS ORDERED: PULMICORT0.5 MG/21 UPD (13:01)
--- NOTE | 2020-09-07 16:12 | NUR ---
PT'S DISCHARGE INSTRUCTIONS REVIEWED AND SIGNED. IV OUT AND TELEMETRY REMOVED. PT WITH OWN OXYGEN TANK FOR TRAVEL.
--- NOTE | 2020-09-08 07:50 | MORECARE ---
CASE MANAGEMENT DISCHARGE SUMMARY PATIENT: FELIPE NO UNIT: [id number] ADM DATE: 09/03/20 AGE: 60 : 56 SEX: M ROOM/BED: D.2102 AUTHOR: GAMA,DOC PHYSICIAN: REFERRING PHYSICIAN: TRISTAN DUQUE MD DATE OF SERVICE: 09/08/20 Discharge Plan Patient Name: FELIPE NO Facility: [facility]:[place] : 1960 Planned Disposition: Home Anticipated Discharge Date: 09/07/20 Discharge Date: 09/07/2020 Expected LOS: 4 Initial Reviewer: [email or web address] Initial Review Date: 09/03/2020 Generated: 09/08/20 8:49 am Comments DCP- Discharge Planning Updated by [email or web address]: Toni Mccall on 09/07/20 10:[address] CM met with patient to complete DC plan and to evaluate needs. Patient lives independently with his spouse, Marina No ([phone]). At discharge, the patient plans to return home and feels this is a safe discharge. The patient stated that he readmitted after 7 days of last hospitalization because he "...had too much fluid". Patient stated that he went to his follow up appointment and was told to return to the hospital. Patient stated that he has diagnosed with liver cirrhosis a few years ago but this is the first time he has had "...fluid build up". Patient stated that he was able to obtain his new medications and was taking them appropriately. CM discussed availability of home health, rehab services, and medical equipment. Patient declined HHS, SNF, IPR, and DME. Patient voiced no other needs at this time and is satisfied with DC plan. DC IMM delivered, explained, signed by the patient, and placed in chart. Signed form also left with the patient. CM will continue to follow and will assist as needed with dc plans/needs. DCPIA - Discharge Planning Initial Assessment Updated by [id number]: Toni Mccall on 09/07/20 11:36 am * Is the patient Alert and Oriented? Yes * How many steps to enter\\exit or inside your home? 4/0 * PCP GIRALDO * [facility] * Preadmission Environment Home with Family * ADLs Independent * Other Equipment HOME / PORTABLE 02 - [employer] * List name and contact numbers for known caregivers / representatives who currently or will assist patient after discharge: CYN - GAIL - [phone] * Verbal permission to speak to the caregivers and representatives has been obtained from the patient. Yes * Community resources currently utilized None * Please name any agencies selected above. n/a * Additional services required to return to the preadmission environment? No * Can the patient safely return to the preadmission environment? Yes * Has this patient been hospitalized within the prior 30 days at any hospital? Yes Coverage Notice Reviewer: [email or web address] Patricia RoblesToniella Fernandeznes Notice Issued Date-Time: 09/06/2020 18:15 Notice Type: IM Discharge Notice Notice Delivered To: Patient Relationship to Patient: Self Digital Watch Assembler Name: Delivery Method: - Kellee Days: Prior Verbal Notification: Recipient Understood Notice: Yes Recipient Signature: Yes Med Rec Note Co-signed by Attending: Coverage Notice Comment: DC IMM delivered, explained, signed by the patient, and placed in chart. Last DP export: 09/07/20 10:37 am Patient Name: FELIPE NO Page 10056 at 0750 All edits/amendments must be made on the electronic document DICTATION DATE: 09/08/20749 INDUSTRIAL ENG: GET 09/08/20749 RPT#: [id number] DC DATE:09/07/20 STATUS: DIS IN [facility] [address] [place] [address] END OF REPORT
[2020-09-08 09:08] LABS: FUNGUS STAIN Final report (())
== END 2020-09-07 16:13 | disposition home or self-care (01) | DRG 189 ==
LOC: D.M2 13:06 → D.SDCHOLD 13:06 → D.M2 13:15
PROVIDERS: Emergency Medicine; Internal Medicine Gastroenterology; Internal Medicine Pulmonary Disease; Radiology Diagnostic Radiology; ADMIT Family Medicine; ATTEND Family Medicine
PROC: 0W9G3ZZ Drainage of Peritoneal Cavity, Percutaneous Approach (ICD-10-PCS; principal; 2020-09-05 10:07)
DX: J96.20 Acute and chronic respiratory failure, unspecified whether with hypoxia or hypercapnia (principal); R18.8 Other ascites; J44.9 Chronic obstructive pulmonary disease, unspecified; I11.0 Hypertensive heart disease with heart failure; I50.9 Heart failure, unspecified; E78.5 Hyperlipidemia, unspecified; K59.00 Constipation, unspecified; D50.9 Iron deficiency anemia, unspecified; K74.60 Unspecified cirrhosis of liver; I08.1 Rheumatic disorders of both mitral and tricuspid valves; F17.200 Nicotine dependence, unspecified, uncomplicated; E11.40 Type 2 diabetes mellitus with diabetic neuropathy, unspecified; I25.10 Atherosclerotic heart disease of native coronary artery without angina pectoris; E87.5 Hyperkalemia

== ENCOUNTER 2020-09-23 07:00 | Inpatient (IN) | payer MEDICARE, MEDICAID ==
[~2020-09-23] VITALS: Ht 172.7 cm; Wt 114.8 kg
[~2020-09-23 07:00] MED LIST changes: +ALDACTONE25 MG PO; +BUMEX2 MG PO; +PERFOROMIS20 MCG/21 INH; +PULMICORT0.5 MG/21 UPD
[2020-09-23 07:16] LABS: BASOPHILS 0.1 % (0-2); EOSINOPHILS 1.1 % (0-7); HEMATOCRIT 32.1 % (42.0-54.0); HEMOGLOBIN 9.5 g/dL (13.5-17.5); IMMATURE GRANULOCYTES 0.2 % (0-5); LYMPHOCYTE ABS# 1.05 10x3/uL (1.32-3.57); LYMPHOCYTES 10.4 % (15-50); MCH 24.7 pg (26.0-34.0); MCHC 29.6 g/dL (31.0-37.0); MCV 83.4 fL (80.0-100.0); MEAN PLATELET VOLUME 9.6 fL (7.4-10.4); MONOCYTES 6.6 % (2-11); NEUTROPHIL ABS# 8.26 10x3/uL (1.78-5.38); NEUTROPHILS 81.6 % (40-80); RBC 3.85 10x6/uL (4.20-6.10); RDW 14.4 % (11.5-14.5); WBC 10.1 10x3/uL (4.8-10.8)
[2020-09-23 07:17] LABS: PLATELET COUNT 320 10x3/uL (130-400)
[2020-09-23 07:23] LABS: CALC OSMOLALITY 284 mosm/kg (275-300); CALCIUM 8.8 mg/dL (8.5-10.1); CARBON DIOXIDE 33.6 mmol/L (21.0-32.0); CHLORIDE - SERUM 101 mmol/L (98-107); CREATININE - SERUM 1.1 mg/dL (0.6-1.3); POTASSIUM - SERUM 4.6 mmol/L (3.5-5.1); SODIUM 140 mmol/L (136-145); UREA NITROGEN 18 mg/dL (7-18); eGFR NON AFRICAN AMERICAN 72 mL/min (90-120)
[2020-09-23 07:25] LABS: APTT 28.4 SECONDS (22.8-39.4); GLUCOSE 179 mg/dL (74-106)
[2020-09-23 07:26] LABS: INR 0.99 (0.85-1.17); PROTIME 12.1 SECONDS (11.6-15.0)
[2020-09-23 07:41] LABS: ALBUMIN 2.3 g/dL (3.4-5.0); ALKALINE PHOSPHATASE 286 U/L (30-120); ALT (SGPT) 20 U/L (10-68); BILIRUBIN - TOTAL 0.15 mg/dL (0.2-1.3); CKMB 0.2 U/L (0.0-3.6); CREATINE KINASE 23 UL (21-232); PRO BNP 893 pg/mL (0-125); PROTEIN - SERUM 6.9 g/dL (6.4-8.2)
[2020-09-23 07:43] LABS: D-DIMER-QUANTITATIVE 2.14 ug/mLFEU (0.20-0.54); TROPONIN-I < 0.017 ng/mL (0.000-0.060)
[2020-09-23 09:14] VITALS: BP 139/54
[2020-09-23 09:53] LABS: SARS-CoV-2 ANTIGEN NEGATIVE- SARS-COV-2 (NEGATIVE)
--- NOTE | 2020-09-23 10:02 | NUR ---
KENALOG AND LIDOCAINE ADMIN. BY DR. SALAMANCA
--- NOTE | 2020-09-23 11:01 | NUR ---
PT ARRIVED VIA WHEELCHAIR . PT AMBULATED TO BED WITHOUT ASSISTANCE. O2 IN PLACE VIA NC. RR EVEN NON LABORED. PT AWAKE AND ALERT, DENIES ANY PAIN AT THIS TIME. PT ORIENTED TO ROOM AND CALL LIGHT. NO QUESTIONS OR NEEDS VOICED. CLWR.
[2020-09-23 11:13] VITALS: BP 174/73; BMI 36.7
[2020-09-23 15:00] VITALS: BP 118/74; BP 181/80
[2020-09-23 21:17] VITALS: BP 148/58
[2020-09-24 01:46] VITALS: BP 165/66
[2020-09-24 05:40] VITALS: BP 170/63
[2020-09-24 06:02] LABS: BASOPHILS 0.1 % (0-2); EOSINOPHILS 1.1 % (0-7); HEMOGLOBIN 8.6 g/dL (13.5-17.5); IMMATURE GRANULOCYTES 0.1 % (0-5); LYMPHOCYTE ABS# 0.89 10x3/uL (1.32-3.57); LYMPHOCYTES 11.9 % (15-50); MCH 24.2 pg (26.0-34.0); MCHC 28.7 g/dL (31.0-37.0); MCV 84.3 fL (80.0-100.0); MEAN PLATELET VOLUME 9.9 fL (7.4-10.4); MONOCYTES 6.7 % (2-11); NEUTROPHIL ABS# 5.97 10x3/uL (1.78-5.38); NEUTROPHILS 80.1 % (40-80); PLATELET COUNT 295 10x3/uL (130-400); RBC 3.56 10x6/uL (4.20-6.10); RDW 14.5 % (11.5-14.5)
--- NOTE | 2020-09-24 06:14 | NUR ---
Pt is A&OX4 and verbalizes wants/needs clearly, appropriately and without hesitation or difficulty. C/o back pain but it is within a tolerable level. Pt does verbalize that area which was injected to back doesn't hurt, just the sides of his back. Pt has rested well this night without SOB or dyspnea observed. Diabetic teaching for nutrition completed by this nurse as pt continues to eat sherbert along with drinking Cola all night when awake. Pt did verbalize understanding but, stated he will continue to do the same.
[2020-09-24 06:20] LABS: WBC 7.5 10x3/uL (4.8-10.8)
[2020-09-24 06:28] LABS: ANION GAP 4.2 mmol/L (8-16); CALCIUM 8.8 mg/dL (8.5-10.1); CARBON DIOXIDE 37.5 mmol/L (21.0-32.0); CREATININE - SERUM 1.1 mg/dL (0.6-1.3); MAGNESIUM - SERUM 1.5 mg/dL (1.8-2.4); PHOSPHOROUS 3.2 mg/dL (2.5-4.9); POTASSIUM - SERUM 4.7 mmol/L (3.5-5.1)
[2020-09-24 07:54] VITALS: BP 173/65
--- NOTE | 2020-09-24 08:52 | NUR ---
AM MEDS GIVEN WITH PRN TYLENOL D/T PAIN TO BACK. RR EVEN NON LABORED. O2 IN PLACE. PT AAOX3, PLEASANT AND ANSWERS QUESTIONS APPROP. PT DENIES ANY FURTHER NEEDS. CLWR.
--- NOTE | 2020-09-24 09:48 | NUR ---
CALLED OSVALDO GALLEGOS D/T TYLENOL NOT RELIEVING PAIN. NEW ORDER RECEIVED AND READ BACK.
--- NOTE | 2020-09-24 11:09 | NUR ---
PT LYING ON RIGHT SIDE, AWAKE AND ALERT WATCHING TV. RR EVEN NON LABORED. O2 IN PLACE. NO NEEDS VOICED. CLWR.
[2020-09-24 11:32] VITALS: BP 179/69
[2020-09-24 13:33] VITALS: Ht 172.7 cm; Wt 114.8 kg
[2020-09-24 15:59] VITALS: BP 163/68
--- NOTE | 2020-09-24 18:12 | NUR ---
PT RETURNED FROM MRI , PT UNABLE TO COMPLETE THE SCAN D/T NOT BEING ABLE TO TOELRATE. PT DENIES WANTING MEDS PER MANAGER FINANCIAL SERVICES.
--- NOTE | 2020-09-24 18:14 | NUR ---
PT ATTEMPTED MRI, COULD NOT COMPLETE, DIFFICULTY BREATHING WHILE FLAT, IN PAIN, CLAUSTROPHOBIC AND DIDN'T WANT ANY MEDS. MASHA OSBORNE NOTIFIED.
[2020-09-25 01:08] VITALS: BP 135/55
--- NOTE | 2020-09-25 02:25 | NUR ---
I have reviewed this patient and I concur with the Shift Assessment completed by the Licensed Practical Nurse today this shift.
[2020-09-25 05:33] VITALS: BP 147/56
[2020-09-25 06:08] LABS: CALC OSMOLALITY 284 mosm/kg (275-300); CALCIUM 9.3 mg/dL (8.5-10.1); CARBON DIOXIDE 36.1 mmol/L (21.0-32.0); CHLORIDE - SERUM 100 mmol/L (98-107); GLUCOSE 205 mg/dL (74-106); POTASSIUM - SERUM 5.3 mmol/L (3.5-5.1); SODIUM 137 mmol/L (136-145); UREA NITROGEN 26 mg/dL (7-18); eGFR NON AFRICAN AMERICAN 80 mL/min (90-120)
[2020-09-25 08:18] VITALS: BP 153/78
[2020-09-25 08:38] LABS: ALBUMIN 2.1 g/dL (3.4-5.0); ALKALINE PHOSPHATASE 240 U/L (30-120); ALT (SGPT) 15 U/L (10-68); BILIRUBIN - TOTAL 0.16 mg/dL (0.2-1.3); PROTEIN - SERUM 6.4 g/dL (6.4-8.2)
[2020-09-25 08:50] LABS: BASOPHILS 0.1 % (0-2); EOSINOPHILS 1.1 % (0-7); HEMATOCRIT 27.9 % (42.0-54.0); HEMOGLOBIN 8.2 g/dL (13.5-17.5); IMMATURE GRANULOCYTES 0.1 % (0-5); LYMPHOCYTE ABS# 1.07 10x3/uL (1.32-3.57); LYMPHOCYTES 11.7 % (15-50); MCH 24.4 pg (26.0-34.0); MCHC 29.4 g/dL (31.0-37.0); NEUTROPHIL ABS# 7.24 10x3/uL (1.78-5.38); PLATELET COUNT 284 10x3/uL (130-400); RBC 3.36 10x6/uL (4.20-6.10); RDW 14.5 % (11.5-14.5); WBC 9.2 10x3/uL (4.8-10.8)
--- NOTE | 2020-09-25 10:21 | NUR ---
PATIENT AAOX4, RESP EVEN AND NON LABORED, NO S/S OF DISTRESS, MEDICATIONS ADMINISTERED WITH NO COMPLICATIONS, BREAKFAST 100%, NO FURTHER NEEDS AT THIS TIME, CLIR, BLP
[2020-09-25 11:46] VITALS: BP 209/93
[2020-09-25 16:11] VITALS: BP 190/80
[2020-09-25 20:00] VITALS: BP 169/67
--- NOTE | 2020-09-25 21:00 | NUR ---
AAOX4. DENIES PAIN OR SOB. ASSESSMENT COMPLETE. CLIR. BED N LOWEST POSITION.
--- NOTE | 2020-09-25 23:00 | NUR ---
WATCHING TV ON HIS PHONE. NO S/S OF DISRESS. CLIR. DENIES ANY OTHER NEEDS OR CONCERNS.
--- NOTE | 2020-09-26 00:41 | NUR ---
BP 156/75, BUMEX ADMINISTERED
[2020-09-26 04:00] VITALS: BP 184/65
[2020-09-26 05:31] LABS: BASOPHILS 0.1 % (0-2); EOSINOPHILS 1.1 % (0-7); HEMOGLOBIN 8.5 g/dL (13.5-17.5); IMMATURE GRANULOCYTES 0.2 % (0-5); LYMPHOCYTE ABS# 0.94 10x3/uL (1.32-3.57); LYMPHOCYTES 10.2 % (15-50); MCH 24.3 pg (26.0-34.0); MCHC 29.3 g/dL (31.0-37.0); MCV 82.9 fL (80.0-100.0); MEAN PLATELET VOLUME 9.8 fL (7.4-10.4); MONOCYTES 8.3 % (2-11); NEUTROPHIL ABS# 7.37 10x3/uL (1.78-5.38); NEUTROPHILS 80.1 % (40-80); PLATELET COUNT 297 10x3/uL (130-400); RDW 14.4 % (11.5-14.5); WBC 9.2 10x3/uL (4.8-10.8)
[2020-09-26 06:00] LABS: ALBUMIN 2.2 g/dL (3.4-5.0); ALKALINE PHOSPHATASE 258 U/L (30-120); ALT (SGPT) 16 U/L (10-68); BILIRUBIN - TOTAL 0.14 mg/dL (0.2-1.3); CALC OSMOLALITY 282 mosm/kg (275-300); CALCIUM 9.5 mg/dL (8.5-10.1); CARBON DIOXIDE 35.7 mmol/L (21.0-32.0); CHLORIDE - SERUM 96 mmol/L (98-107); GLUCOSE 213 mg/dL (74-106); MAGNESIUM - SERUM 1.3 mg/dL (1.8-2.4); POTASSIUM - SERUM 5.5 mmol/L (3.5-5.1); PROTEIN - SERUM 6.7 g/dL (6.4-8.2); SODIUM 136 mmol/L (136-145); UREA NITROGEN 26 mg/dL (7-18); eGFR NON AFRICAN AMERICAN 80 mL/min (90-120)
[2020-09-26] MEDS ORDERED: ALDACTONE25 MG PO (08:13)
[2020-09-26] MEDS ORDERED: LISINOPRIL5 MG PO (08:13)
[2020-09-26 08:25] VITALS: BP 141/63
--- NOTE | 2020-09-26 09:32 | NUR ---
PATIENT LYING SEMI FOWLERS AAOX4 TALKING WITH , RESP EVEN AND NON LABORED, NO S/S OF DISTRESS, MEDICATIONS ADMINSITERED WITH NO COMPLICATIONS, PATIENT DISCUSSED BEING DISCHARGED WITH ME AND WHEN ORDERS ARE RECIEVED I MENTIONED I WOULD NOTIFY HIM, NO FURTHER NEEDS AT THIS TIME, NIGEL AKERS
--- NOTE | 2020-09-26 09:34 | MORECARE ---
CASE MANAGEMENT DISCHARGE SUMMARY PATIENT: FELIPE ADDISON UNIT: [id number] ADM DATE: 09/23/20 AGE: 60 : 56 SEX: M ROOM/BED: D.2103 AUTHOR: GAMADOC PHYSICIAN: REFERRING PHYSICIAN: TESFAYE SALAMANCA DO DATE OF SERVICE: 09/26/20 Case Management Discharge Planning Summary DCP REVIEW SUMMARY ANTICIPATED D/C DATE: EXPECTED LOS : CASE STATUS: DCP Initiated INITIAL REVIEW: 09/26/2020 INITIAL REVIEWER: Melissa Kendall FINAL DISCHARGE DISPOSITION: : FINAL REVIEWER: FINAL REVIEW DATE: DCP Focus Questions & Answers DCP REV -DCP Review Added on: 09/26/20 9:34 am QUESTION: ANSWER DCP Screen High Risk Factors: : 3 or more ED visits within the last 60 days DCP Evaluation Patient's ability to cope with chronic illness : d. No chronic illness Mental health screen: : No mental health history Would patient like to participate in any Care Coordination programs (if applicable): : Not applicable DCP Re-evaluation Would patient like to participate in any Care Coordination programs (if applicable): : Not applicable PATIENT: FELIPE ADDISON ENCOUNTER: [id number] MEDICAL RECORD#: [id number] ADMISSION DATE: 09/23/2020 DISCHARGE DATE: ATTENDING MD: TESFAYE MILLS : AGE: 60 MARITAL STATUS: M DC PLAN ID: [id number] FACILITY: [facility] PRINTED ON: 09/26/20 9:34 CT All edits/amendments must be made on the electronic document DICTATION DATE: 09/26/20933 PRESIDING STEWARD: DM 09/26/20933 RPT#: [id number] DC DATE: STATUS: ADM IN [facility] [address] [place] [address] END OF REPORT
--- NOTE | 2020-09-26 09:46 | MORECARE ---
CASE MANAGEMENT DISCHARGE SUMMARY PATIENT: FELIPE NO UNIT: [id number] ADM DATE: 09/23/20 AGE: 60 : 56 SEX: M ROOM/BED: D.2103 AUTHOR: GAMA,DOC PHYSICIAN: REFERRING PHYSICIAN: TESFAYE SALAMANCA DO DATE OF SERVICE: 09/26/20 Case Management Discharge Planning Summary COMMENTS ENTERED DATE: 09/26/20 9:41 CT COMMENT TYPE: Discharge Planning REVIEWER: Melissa Kendall CM received discharge orders. CM went to patient's room to speak with patient about discharge planning/needs. Patient gives permission to speak with spouse in the room. Patient states he is independent with all ADL's and AIDL's. States he has oxygen with portability and nebulizer from [facility]. States that he returned to hospital for a completely different reason than he was here within the past 30 days for. States "my back is messed up." States he did not have any new Rx last time and that he had a f/u appointment, but returned to the hospital before scheduled visit. Patient states he is going to be off his Plavix until he has his kyphoplasty done on Tuesday. He denies need for home health or additional DME. No needs identified. Home today with spouse. NEP REVIEW SUMMARY ANTICIPATED D/C DATE: EXPECTED LOS : CASE STATUS: DCP Initiated INITIAL REVIEW: 09/26/2020 INITIAL REVIEWER: Melissa Kendall FINAL DISCHARGE DISPOSITION: : FINAL REVIEWER: FINAL REVIEW DATE: NEP Focus Questions & Answers NEP REV -DCP Review Added on: 09/26/20 9:34 am QUESTION: ANSWER DCP Screen High Risk Factors: : 3 or more ED visits within the last 60 days DCP Evaluation Patient's ability to cope with chronic illness : a. Adequate (0-3 ED visits in 6 mos., adequate financial resources, attends scheduled appts.) Mental health screen: : No mental health history Would patient like to participate in any Care Coordination programs (if applicable): : Not applicable Patient gives permission to discuss discharge plans with: (name, relationship and number) : Marina No [phone] Physical Status: : Independent with ADL's Baseline cognitive status: : *Oriented to person, place, situation, time and present Family / Caregiver's ability to cope with chronic illness: : a. Adequate (ability to meet patient's medical needs, ensures patient attends medical appts.) Living Arrangements: : Home with Spouse/Significant Other Medication Management: : Patient states can read and understand medication labels Pharmacy name(s): : [facility] Does Patient have transportation to get home and to follow-up medical appointments when discharged from the hospital? : Yes Comments: : Patient states he drives Equipment in use: : Nebulizer Equipment in use: : Other Other Equipment comments: : Oxygen with portability from [facility] Equipment agency name and contact information: : [facility] - [phone] Patient's current cognitive status: : *Oriented to person, place, situation, time and present Patient with capacity for self-care or can be cared for in same environment as prior to hospitalization? : Yes Preadmission facility can/cannot provide post hospital level of care needs: : Can - at same level of care as preadmission Family / Caregiver's ability to cope with chronic illness: : a. Adequate (ability to meet patient's medical needs, ensures patient attends medical appts.) Does the patient have the ability to pay for or attain post discharge needs / services? : Yes Is there a likelihood that the patient will require additional services to return to the preadmission environment? : No Results of this evaluation have been discussed with: : Patient Results of this evaluation have been discussed with: : Spouse Patient and/or caregiver agree upon recommended discharge plan? : Yes Equipment needed for post hospitalization: : None Physical environment modification needed / anticipated for discharge: : No Planned post hospital services available for patient? : Yes Other Care Coordination programs/comments: : Patient to have IR procedure on Tuesday DCP Re-evaluation Would patient like to participate in any Care Coordination programs (if applicable): : Not applicable Reassessment due to: : New discovery of admission to an acute inpatient facility within 30 days Patient gives permission to discuss discharge plans with: (name, relationship and number) : spouse Patient's current cognitive status: : *Oriented to person, place, situation, time and present Functional screen assessment: : New onset in difficulty in gait, balance, or transfer difficulties Patient with capacity for self-care or can be cared for in same environment as prior to hospitalization? : Yes Preadmission facility can/cannot provide post hospital level of care needs: : Can - at same level of care as preadmission Patient and/or caregiver agree upon recommended discharge plan? : Yes Equipment needed for post hospitalization: : None Patient and/or Caregiver notified that they can request a re-evaluation of the discharge plan at any time. : Yes Physical environment modification needed / anticipated for discharge: : No Planned post hospital services available for patient? : Yes Planned post hospital services covered by insurance plan? : Yes PATIENT: FELIPE NO ENCOUNTER: [id number] MEDICAL RECORD#: [id number] ADMISSION DATE: 09/23/2020 DISCHARGE DATE: ATTENDING MD: TESFAYE MILLS : AGE: 60 MARITAL STATUS: M DC PLAN ID: [id number] FACILITY: [facility] PRINTED ON: 09/26/20 9:46 CT All edits/amendments must be made on the electronic document DICTATION DATE: 09/26/20945 CABLE SPOOLER: GET 09/26/20945 RPT#: [id number] DC DATE: STATUS: ADM IN [facility] [address] [place] [address] END OF REPORT
[2020-09-26 14:28] LABS: BILIRUBIN NEGATIVE (NEGATIVE); KETONE NEGATIVE (NEGATIVE); NITRITE NEGATIVE (NEGATIVE)
[2020-09-26 14:29] LABS: BACTERIA FEW HPF (NONE SEEN); SQUAMOUS EPITHELIAL RARE HPF (0-4); WHITE CELLS - URINE RARE HPF (0-1)
--- NOTE | 2020-09-26 15:18 | MORECARE ---
CASE MANAGEMENT DISCHARGE SUMMARY PATIENT: FELIPE NO UNIT: [id number] ADM DATE: 09/23/20 AGE: 60 : 56 SEX: M ROOM/BED: D.2103 AUTHOR: GAMA,DOC PHYSICIAN: REFERRING PHYSICIAN: TESFAYE SALAMANCA DO DATE OF SERVICE: 09/26/20 Case Management Discharge Planning Summary CT Patient Name: FELIPE NO Attending MD : TESFAYE DE Medical Record: [id number] Encounter : [id number] Facility : [address] [place] [address] Admission Date : 09/23/2020 9:12 Center Discharge Date : 09/26/[address] [place] [address] Date of : DC Plan ID : [id number] Age/Sex/Martia : 60/ M/M Printed on : 09/26/20 15:16 CT DCP Review Details Anticipated D/C: Expected LOS : Case Status : INITIATED - Initial Reviewe: [id number] - Melissa Kendall Initial Review: 09/26/2020 Planned Disposi: 01 - Home or Self Care (Routine Discharge) Final Discharge: - Final Reviewer : : Final Review : Comments CT Entered Date Type Reviewer 09/26/20 9:41 CT Discharge Planning Melissa Kendall Comment CM received discharge orders. CM went to patient's room to speak with patient about discharge planning/needs. Patient gives permission to speak with spouse in the room. Patient states he is independent with all ADL's and AIDL's. States he has oxygen with portability and nebulizer from [facility]. States that he returned to hospital for a completely different reason than he was here within the past 30 days for. States "my back is messed up." States he did not have any new Rx last time and that he had a f/u appointment, but returned to the hospital before scheduled visit. Patient states he is going to be off his Plavix until he has his kyphoplasty done on Tuesday. He denies need for home health or additional DME. No needs identified. Home today with spouse. DCP Focus Questions & Answers DCP Screen High Risk Factors: 3 or more ED visits within the last 60 days DCP Evaluation Patient's ability to cope with chronic illness a. Adequate (0-3 ED visits in 6 mos., adequate financial resources, attends scheduled appts.) Patient and/or caregiver agree upon recommended Yes discharge plan? Family / Caregiver's ability to cope with chronic a. Adequate (ability to meet patient's illness: medical needs, ensures patient attends medical appts.) Patient's current cognitive status: *Oriented to person, place, situation, time and present Patient gives permission to discuss discharge Marina No -[phone] plans with: (name, relationship and number) Does the patient have the ability to pay for or Yes attain post discharge needs / services? Family / Caregiver's ability to cope with chronic a. Adequate (ability to meet patient's illness: medical needs, ensures patient attends medical appts.) Physical Status: Independent with ADL's Equipment needed for post hospitalization: None Is there a likelihood that the patient will No require additional services to return to the preadmission environment? Living Arrangements: Home with Spouse/Significant Other Results of this evaluation have been discussed Spouse with: Results of this evaluation have been discussed Patient with: Patient with capacity for self-care or can be Yes cared for in same environment as prior to hospitalization? Baseline cognitive status: *Oriented to person, place, situation, time and present Physical environment modification needed / No anticipated for discharge: Preadmission facility can/cannot provide post Can - at same level of care as preadmission hospital level of care needs: Medication Management: Patient states can read and understand medication labels Planned post hospital services available for Yes patient? Pharmacy name(s): [facility] Does Patient have transportation to get home and Yes to follow-up medical appointments when discharged from the hospital? Would patient like to participate in any Care Not applicable Coordination programs (if applicable): Comments: Patient states he drives Other Care Coordination programs/comments: Patient to have IR procedure on Tuesday Equipment in use: Other Equipment in use: Nebulizer Other Equipment comments: Oxygen with portability from [employer] Equipment agency name and contact information: [employer] - [phone] Mental health screen: No mental health history DCP Re-evaluation Patient and/or caregiver agree upon recommended Yes discharge plan? Patient's current cognitive status: *Oriented to person, place, situation, time and present Reassessment due to: New discovery of admission to an acute inpatient facility within 30 days Functional screen assessment: New onset in difficulty in gait, balance, or transfer difficulties Patient gives permission to discuss discharge spouse plans with: (name, relationship and number) Equipment needed for post hospitalization: None Patient with capacity for self-care or can be Yes cared for in same environment as prior to hospitalization? Patient and/or Caregiver notified that they can Yes request a re-evaluation of the discharge plan at any time. Preadmission facility can/cannot provide post Can - at same level of care as preadmission hospital level of care needs: Physical environment modification needed / No anticipated for discharge: Planned post hospital services available for Yes patient? Planned post hospital services covered by Yes insurance plan? Would patient like to participate in any Care Not applicable Coordination programs (if applicable): [facility] FELIPE NO MR#: [id number] /Age/Sex/Woikyv89-[id number]-96 /60/M /M Attending Physician Name: MATHIEU SALAMANCA [id number] Patient Account:[id number] [facility] Page -1 of 1 All edits/amendments must be made on the electronic document DICTATION DATE: 09/26/201515 PERINATOLOGY PHYSICIAN: EGT 09/26/201515 RPT#: [id number] DC DATE:09/26/20 STATUS: DIS IN [facility] [address] [place] [address] END OF REPORT
--- NOTE | 2020-09-27 16:02 | MORECARE ---
CASE MANAGEMENT DISCHARGE SUMMARY PATIENT: FELIPE ADDISON UNIT: [id number] ADM DATE: 09/23/20 AGE: 60 : 56 SEX: M ROOM/BED: D.2103 AUTHOR: GAMA,DOC PHYSICIAN: REFERRING PHYSICIAN: TESFAYE SALAMANCA DO DATE OF SERVICE: 09/27/20 Case Management Discharge Planning Summary CT Patient Name: FELIPE ADDISON Attending MD : TESFAYE DE Medical Record: [id number] Encounter : [id number] Facility : [address] [place] [address] Admission Date : 09/23/2020 9:12 Center Discharge Date : 09/26/[address] [place] [address] Date of : DC Plan ID : [id number] Age/Sex/Martia : 60/ M/M Printed on : 09/27/20 16:01 CT DCP Review Details Anticipated D/C: Expected LOS : 0 Case Status : COMPLET - Initial Reviewe: [id number] - Melissa Kendall Initial Review: 09/26/2020 Planned Disposi: 01 - Home or Self Care (Routine Discharge) Final Discharge: 01 - Home or Self Care (Routine Discharge) Final Reviewer : [id number] : Melissa Kendall Final Review : 09/27/[address] Entered Date Type Reviewer 09/26/20 9:41 CT Discharge Planning Melissa Kendall Comment CM received discharge orders. CM went to patient's room to speak with patient about discharge planning/needs. Patient gives permission to speak with spouse in the room. Patient states he is independent with all ADL's and AIDL's. States he has oxygen with portability and nebulizer from [facility]. States that he returned to hospital for a completely different reason than he was here within the past 30 days for. States "my back is messed up." States he did not have any new Rx last time and that he had a f/u appointment, but returned to the hospital before scheduled visit. Patient states he is going to be off his Plavix until he has his kyphoplasty done on Tuesday. He denies need for home health or additional DME. No needs identified. Home today with spouse. DCP Focus Questions & Answers DCP Screen High Risk Factors: 3 or more ED visits within the last 60 days DCP Evaluation Patient gives permission to discuss discharge Marina [phone] plans with: (name, relationship and number) Patient's current cognitive status: *Oriented to person, place, situation, time and present Family / Caregiver's ability to cope with chronic a. Adequate (ability to meet patient's illness: medical needs, ensures patient attends medical appts.) Patient and/or caregiver agree upon recommended Yes discharge plan? Patient's ability to cope with chronic illness a. Adequate (0-3 ED visits in 6 mos., adequate financial resources, attends scheduled appts.) Physical Status: Independent with ADL's Family / Caregiver's ability to cope with chronic a. Adequate (ability to meet patient's illness: medical needs, ensures patient attends medical appts.) Does the patient have the ability to pay for or Yes attain post discharge needs / services? Living Arrangements: Home with Spouse/Significant Other Is there a likelihood that the patient will No require additional services to return to the preadmission environment? Equipment needed for post hospitalization: None Baseline cognitive status: *Oriented to person, place, situation, time and present Patient with capacity for self-care or can be Yes cared for in same environment as prior to hospitalization? Results of this evaluation have been discussed Patient with: Results of this evaluation have been discussed Spouse with: Preadmission facility can/cannot provide post Can - at same level of care as preadmission hospital level of care needs: Physical environment modification needed / No anticipated for discharge: Medication Management: Patient states can read and understand medication labels Pharmacy name(s): [facility] Planned post hospital services available for Yes patient? Does Patient have transportation to get home and Yes to follow-up medical appointments when discharged from the hospital? Comments: Patient states he drives Would patient like to participate in any Care Not applicable Coordination programs (if applicable): Other Care Coordination programs/comments: Patient to have IR procedure on Tuesday Equipment in use: Nebulizer Equipment in use: Other Other Equipment comments: Oxygen with portability from [employer] Equipment agency name and contact information: [employer] - [phone] Mental health screen: No mental health history DCP Re-evaluation Reassessment due to: New discovery of admission to an acute inpatient facility within 30 days Patient's current cognitive status: *Oriented to person, place, situation, time and present Patient and/or caregiver agree upon recommended Yes discharge plan? Patient gives permission to discuss discharge spouse plans with: (name, relationship and number) Functional screen assessment: New onset in difficulty in gait, balance, or transfer difficulties Equipment needed for post hospitalization: None Patient with capacity for self-care or can be Yes cared for in same environment as prior to hospitalization? Preadmission facility can/cannot provide post Can - at same level of care as preadmission hospital level of care needs: Patient and/or Caregiver notified that they can Yes request a re-evaluation of the discharge plan at any time. Physical environment modification needed / No anticipated for discharge: Planned post hospital services available for Yes patient? Planned post hospital services covered by Yes insurance plan? Would patient like to participate in any Care Not applicable Coordination programs (if applicable): [facility] FELIPE ADDISON MR#: [id number] /Age/Sex/Plirjm34-Jqe-60 //M /M Attending Physician Name: MATHIEU SALAMANCA [id number] Patient Account:[id number] [facility] Page -1 of 1 All edits/amendments must be made on the electronic document DICTATION DATE: 09/27/20 160 FURNITURE PACKER: GET 09/27/201600 RPT#: [id number] DC DATE:09/26/20 STATUS: DIS IN [facility] [address] [place] [address] END OF REPORT
--- NOTE | 2020-09-29 13:41 | MORECARE ---
CASE MANAGEMENT DISCHARGE SUMMARY PATIENT: FELIPE ADDISON UNIT: [id number] ADM DATE: 09/23/20 AGE: 60 : 56 SEX: M ROOM/BED: D.2103 AUTHOR: GAMA,DOC PHYSICIAN: REFERRING PHYSICIAN: TESFAYE SALAMANCA DO DATE OF SERVICE: 09/29/20 Case Management Discharge Planning Summary CT Patient Name: FELIPE ADDISON Attending MD : TESFAYE DE Medical Record: [id number] Encounter : [id number] Facility : [address] [place] [address] Admission Date : 09/23/2020 9:12 Center Discharge Date : 09/26/[address] [place] [address] Date of : DC Plan ID : [id number] Age/Sex/Martia : 60/ M/M Printed on : 09/29/20 13:40 CT DCP Review Details Anticipated D/C: Expected LOS : 0 Case Status : COMPLET - Initial Reviewe: [id number] - Melissa Kendall Initial Review: 09/26/2020 Planned Disposi: 01 - Home or Self Care (Routine Discharge) Final Discharge: 01 - Home or Self Care (Routine Discharge) Final Reviewer : [id number] : Melissa Kendall Final Review : 09/27/[address] Entered Date Type Reviewer 09/26/20 9:41 CT Discharge Planning Melissa Kendall Comment CM received discharge orders. CM went to patient's room to speak with patient about discharge planning/needs. Patient gives permission to speak with spouse in the room. Patient states he is independent with all ADL's and AIDL's. States he has oxygen with portability and nebulizer from [facility]. States that he returned to hospital for a completely different reason than he was here within the past 30 days for. States "my back is messed up." States he did not have any new Rx last time and that he had a f/u appointment, but returned to the hospital before scheduled visit. Patient states he is going to be off his Plavix until he has his kyphoplasty done on Tuesday. He denies need for home health or additional DME. No needs identified. Home today with spouse. DCP Focus Questions & Answers DCP Screen High Risk Factors: 3 or more ED visits within the last 60 days DCP Evaluation Patient's ability to cope with chronic illness a. Adequate (0-3 ED visits in 6 mos., adequate financial resources, attends scheduled appts.) Patient and/or caregiver agree upon recommended Yes discharge plan? Family / Caregiver's ability to cope with chronic a. Adequate (ability to meet patient's illness: medical needs, ensures patient attends medical appts.) Patient's current cognitive status: *Oriented to person, place, situation, time and present Patient gives permission to discuss discharge Marina [phone] plans with: (name, relationship and number) Does the patient have the ability to pay for or Yes attain post discharge needs / services? Family / Caregiver's ability to cope with chronic a. Adequate (ability to meet patient's illness: medical needs, ensures patient attends medical appts.) Physical Status: Independent with ADL's Equipment needed for post hospitalization: None Is there a likelihood that the patient will No require additional services to return to the preadmission environment? Living Arrangements: Home with Spouse/Significant Other Results of this evaluation have been discussed Spouse with: Results of this evaluation have been discussed Patient with: Patient with capacity for self-care or can be Yes cared for in same environment as prior to hospitalization? Baseline cognitive status: *Oriented to person, place, situation, time and present Physical environment modification needed / No anticipated for discharge: Preadmission facility can/cannot provide post Can - at same level of care as preadmission hospital level of care needs: Medication Management: Patient states can read and understand medication labels Planned post hospital services available for Yes patient? Pharmacy name(s): [facility] Does Patient have transportation to get home and Yes to follow-up medical appointments when discharged from the hospital? Would patient like to participate in any Care Not applicable Coordination programs (if applicable): Comments: Patient states he drives Other Care Coordination programs/comments: Patient to have IR procedure on Tuesday Equipment in use: Other Equipment in use: Nebulizer Other Equipment comments: Oxygen with portability from [employer] Equipment agency name and contact information: [employer] - [phone] Mental health screen: No mental health history DCP Re-evaluation Patient and/or caregiver agree upon recommended Yes discharge plan? Patient's current cognitive status: *Oriented to person, place, situation, time and present Reassessment due to: New discovery of admission to an acute inpatient facility within 30 days Functional screen assessment: New onset in difficulty in gait, balance, or transfer difficulties Patient gives permission to discuss discharge spouse plans with: (name, relationship and number) Equipment needed for post hospitalization: None Patient with capacity for self-care or can be Yes cared for in same environment as prior to hospitalization? Patient and/or Caregiver notified that they can Yes request a re-evaluation of the discharge plan at any time. Preadmission facility can/cannot provide post Can - at same level of care as preadmission hospital level of care needs: Physical environment modification needed / No anticipated for discharge: Planned post hospital services available for Yes patient? Planned post hospital services covered by Yes insurance plan? Would patient like to participate in any Care Not applicable Coordination programs (if applicable): [facility] FELIPE ADDISON MR#: [id number] /Age/Sex/Wpklrx04-[id number]-21 //M /M Attending Physician Name: MATHIEU SALAMANCA [id number] Patient Account:[id number] [facility] Page -1 of 1 All edits/amendments must be made on the electronic document DICTATION DATE: 09/29/20 1340 SPECIAL AGENT IN CHARGE: GET 09/29/20 1340 RPT#: [id number] DC DATE:09/26/20 STATUS: DIS IN [facility] [address] [place] [address] END OF REPORT
== END 2020-09-26 14:53 | disposition home or self-care (01) | DRG 542 ==
LOC: D.ER 07:00 → D.MS 09:12 → D.M2 09:12
PROVIDERS: Family Medicine; Specialist; ADMIT Family Medicine; ATTEND Family Medicine
DX: M48.54XA Collapsed vertebra, not elsewhere classified, thoracic region, initial encounter for fracture (principal); J96.01 Acute respiratory failure with hypoxia; E11.9 Type 2 diabetes mellitus without complications; K74.60 Unspecified cirrhosis of liver; J44.9 Chronic obstructive pulmonary disease, unspecified; I10 Essential (primary) hypertension; I25.10 Atherosclerotic heart disease of native coronary artery without angina pectoris; Z95.5 Presence of coronary angioplasty implant and graft